=== PATIENT | female | born 1955 | race African-American/Black ===

== ENCOUNTER → 2016-11-16 | Outpatient (CLI) | payer OTHER ==
[2016-08-18 09:00] VITALS: BP 143/78
[~2016-11-16] MED LIST: ALEN70TA3 PO; ALEN70TA5 PO; ASPI-482 PO; ATOR20TA58 PO; BIOT25005 PO; BUPR300T3 PO; BUPR300T4 PO; BUSP10TA PO; CALC500T50 PO; CALC667C6 PO; CHOL10003 PO; CYCL10TA2 PO; DICY20TA3 PO; DOCU-27 PO; ERGO500012 PO; FOLI1TAB16 PO; GABA-586 PO; HYDR-971 PO; HYDR200T PO; LISI-338 PO; LISI10TA2 PO; METH-38 PO; METH2.5T PO; METH4TAB2 PO; METO25TA2 PO; MULT-245 PO; NAPR500T3 PO; NIAC500T10 PO; NITR100C62 PO; OMEP20CA9 PO; ONDA4TAB10 SL; PANT20TA2 PO; POLY500P14 MC; TRAM-29 PO; TRAZ100T12 PO; VILA1TAB2 PO; VILA40TA PO; [UNRECOGNIZED DRUG - CODE] PO; calcium; desyrel PO
--- NOTE | 2016-11-16 14:18 | KCIC ---
PROCEDURE Cervical spine radiographs HISTORY Neck pain, fall about 1 week ago, previous surgery COMPARISON September 24, 2016 FINDINGS Three views of the cervical spine are submitted. There is adequate alignment of the lateral masses C1 relative to C2. Tip of the dens as well as the occipital condylar-C1 articulation are obscured by overlying bone on the odontoid view. Cervical vertebral body stature is maintained. AP alignment is unchanged. There is again intact anterior metallic plate and screws C4, C5, C6. There are again interbody grafts at C4-5 and C5-C6, do not appear completely incorporated. No acute fracture is identified of the visualized cervical spine. Atlantoaxial distance is within normal limits. There is multilevel cervical facet degenerative change. There is likely some atherosclerotic calcification of carotid arteries in the neck bilaterally. IMPRESSION No acute fracture is identified by radiographs. There is intact anterior fusion hardware C4-C6. Electronically signed by: Lazaro Escalera MD (Nov 16, 2016 14:16:57)
== END | disposition home or self-care (01) ==
LOC: KCIC 13:03
PROVIDERS: ATTEND Neurological Surgery
DX: M47.892 Other spondylosis, cervical region (principal); W19.XXXD Unspecified fall, subsequent encounter
CPT/HCPCS: 72040

== ENCOUNTER → 2016-12-21 | Outpatient (CLI) | payer OTHER ==
[2016-08-18 09:00] VITALS: BP 143/78
--- NOTE | 2016-12-21 13:06 | KCIC ---
PROCEDURE Three view cervical spine HISTORY Neck pain extending to the left side. Fell 3 weeks ago. Fusion June 2016. COMPARISON November 16, 2016 FINDINGS Anterior fusion plate and screws at C4 through C6 with intervertebral graft again identified. There is slight obscuration of the margins between the graft and the vertebrae which could indicate some mild interval incorporation. C1 through C7 seen on the lateral view. No evidence of acute fracture or dislocation. Joint space is intact. Degenerative spondylosis at C6-C7 is stable. Prevertebral soft tissues appear within normal limits. IMPRESSION No acute findings. There may be some interval incorporation of intervertebral graft at the fused levels. Electronically signed by: Mauricio Rodríguez MD (Dec 21, 2016 13:04:59)
== END | disposition home or self-care (01) ==
LOC: KCIC 08:52
PROVIDERS: ATTEND Neurological Surgery
DX: M47.892 Other spondylosis, cervical region (principal); W19.XXXD Unspecified fall, subsequent encounter; Z98.1 Arthrodesis status
CPT/HCPCS: 72040

== ENCOUNTER 2017-01-15 09:06 | Inpatient (IN) | payer MEDICARE, OTHER ==
[~2017-01-15] VITALS: Ht 161.3 cm; Wt 76.2 kg
[2017-01-15] VITALS (9 sets, daily range): BP systolic 120–140; BP diastolic 56–74
[~2017-01-15 09:06] MED LIST changes: +ARIP10TA13 PO; +BUPR150T11 PO; +CEFAZOLIN 1GM IVPB FOR OMNI 50 ML IV ONE; +DICL75TA PO; +FENTANYL PF 100 MCG/2 ML VIAL. IV PRN; +GABA-585 PO; +HYDR200T5 PO; +HYDROMORPHONE 2 MG/ML VIAL. IV PRN; +IV RINGERS,LACTATED 1000ML 1,000 ML IV SCH; +LIDOCAINE 1% 1 ML SYRINGE. ID PRN; +MORPHINE SULFATE 2 MG/ML DISP.SYRIN. IV PRN; +NITR0.4T6 SL; +ONDANSETRON PF 4 MG/2 ML VIAL. IV PRN; +POLY119P19 PO; +PROCHLORPERAZINE 10 MG/2 ML VIAL. IV PRN; +TIZA4CAP3 PO; +TRAM50TA PO
[2017-01-15 10:23] LABS: BASO % 1 % (0-3); EOS % 10 % (0-3); HEMATOCRIT 36.7 % (36.0-47.0); HEMOGLOBIN 11.9 g/dL (12.0-15.5); LYMPH % 53 % (24-48); MEAN CORPUSCULAR HEMOGLOBIN 28 pg (25-35); MEAN CORPUSCULAR HGB CONC 32 g/dL (31-37); MEAN CORPUSCULAR VOLUME 86 fL (79-100); MONO % 11 % (0-9); NEUT % 26 % (31-73); PLATELET COUNT 183 x10^3/uL (140-400); RED BLOOD COUNT 4.25 x10^6/uL (3.50-5.40); RED CELL DISTRIBUTION WIDTH 15.4 % (11.5-14.5); WHITE BLOOD COUNT 3.7 x10^3/uL (4.0-11.0)
--- NOTE | 2017-01-15 10:26 | PDOC ---
SURGICAL PROGRESS NOTE Subjective 61 yo F with severe achalasia d/w Dr. Garza Reviewed relevant literature TO OR for lap vs open heller myotomy R/B/A d/w pt and pt's Vital Signs Vital Signs Date Time Temp Pulse Resp B/P Pulse Ox O2 Delivery O2 Flow Rate FiO2 01/15/17 09:49 99.5 56 20 96 99.5 JENNIFER ULRICH MD Jan 15, 2017 10:26
[2017-01-15] MEDS ORDERED: ROCURONIUM 50 MG/5 ML VIAL. ONE ×2 (10:33→12:00)
[2017-01-15] MEDS ORDERED: NEOSTIGMINE METHYLSULFATE 5 MG/5 ML SYRINGE. ONE (10:33)
[2017-01-15] MEDS ORDERED: GLYCOPYRROLATE 1 MG/5 ML VIAL. ONE (10:33)
[2017-01-15] MEDS ORDERED: SEVOFLURANE 61 TO 120 MINUTES. IH ONE (10:33)
[2017-01-15] MEDS ORDERED: MIDAZOLAM HCL 2 MG/2 ML VIAL. ONE (10:33)
[2017-01-15] MEDS ORDERED: FENTANYL PF 100 MCG/2 ML VIAL. ONE ×3 (10:33→13:15)
[2017-01-15] MEDS ORDERED: ONDANSETRON PF 4 MG/2 ML VIAL. ONE (10:34)
[2017-01-15] MEDS ORDERED: PROPOFOL 20 ML IV ONE (10:34)
[2017-01-15] MEDS ORDERED: LIDOCAINE 2% 100 MG/5 ML DISP.SYRIN. ONE (10:34)
[2017-01-15] MEDS ORDERED: DEXAMETHASONE SOD PHOS 20 MG/5 ML VIAL. ONE (10:34)
[2017-01-15] MEDS ORDERED: KETOROLAC 30 MG/ML SYRINGE FOR OR. INJ ONE (10:34)
[2017-01-15 10:42] LABS: CALCIUM 8.7 mg/dL (8.5-10.1); CREATININE 0.9 mg/dL (0.6-1.0)
[2017-01-15 10:47] LABS: ALBUMIN 3.5 g/dL (3.4-5.0); ALBUMIN/GLOBULIN RATIO 0.9 (1.0-1.7); TOTAL BILIRUBIN 0.7 mg/dL (0.2-1.0); TOTAL PROTEIN 7.2 g/dL (6.4-8.2)
[2017-01-15] MEDS ORDERED: SURGICEL HEMOSTAT 4X8 EACH. ONE (10:56)
[2017-01-15] MEDS ORDERED: BUPIVAC MPF-EPI 0.5%-1:200000 30 ML VIAL. ONE (10:56)
[2017-01-15] MEDS ORDERED: EPHEDRINE PF IN SALINE 50 MG/5 ML DISP.SYRIN. IV ONE (11:38)
[2017-01-15] MEDS ORDERED: PHENYLEPHRINE in 0.9% NACL PF 1 MG/10 ML DISP.SYRIN. IV ONE (11:38)
[2017-01-15] MEDS: IV RINGERS,LACTATED 1000ML 1,000 ML IV SCH ×2 (13:24→23:24)
[2017-01-15] MEDS ORDERED: 0.9 % SODIUM CHLORIDE 10 ML DISP.SYRIN. IV PRN (13:30)
[2017-01-15] MEDS ORDERED: NALOXONE 0.4 MG/ML VIAL. IV PRN (13:30)
[2017-01-15] MEDS ORDERED: ONDANSETRON PF 4 MG/2 ML VIAL. IV PRN (13:30)
--- NOTE | 2017-01-15 13:41 | PDOC ---
BRIEF OPERATIVE NOTE Pre-Op Diagnosis Severe achalasia Post-Op Diagnosis same Procedure Performed Lap converted to open heller myotomy Surgeon Meagan Anesthesia Type: General Blood Loss 50 IV Fluid 1500 Findings chronic scarring of the GE jxn Complications none Additional Remarks [id number] JENNIFER ULRICH MD Jan 15, 2017 13:41
[2017-01-15] MEDS: HYDROMORPHONE STANDARD PCA 30 ML IV PRN (14:38)
--- NOTE | 2017-01-15 14:49 | RAD ---
Portable KUB without comparison for postop. Findings: There is scattered abdominal bowel gas in a nonobstructive pattern. Sutures are seen in the left upper quadrant, and there is a left upper quadrant abdominal drain in close approximation. An enteric tube is present as well. 5 mm calcification projecting over the right kidney may represent nephrolithiasis. There are degenerative changes of the lower lumbar spine. Impression: 1. Nonobstructive nonspecific bowel gas pattern. 2. Probable nephrolithiasis on the right. 3. Postsurgical changes involving the left upper quadrant of the abdomen.
[2017-01-15] MEDS: FENTANYL PF 100 MCG/2 ML VIAL. IV PRN ×2 (14:50→14:57)
--- NOTE | 2017-01-15 17:13 | OP ---
DATE OF SURGERY: 01/15/2017 REFERRING PHYSICIANS: Dr. Mauricio Daugherty, Dr. Fina Lenz, Dr. Bryanna Hinojosa, and Dr. Ariel Garza. Thank you for the consult. PREOPERATIVE DIAGNOSIS: Severe achalasia. POSTOPERATIVE DIAGNOSIS: Severe achalasia. PROCEDURE: Laparoscopic converted to open Heller myotomy. SURGEON: Brendon Rhodes MD ESTIMATED BLOOD LOSS: 50 mL. FLUIDS: 1500 mL. COMPLICATIONS: None. FINDINGS: Severe scarring of the GE junction, chronic in nature, patent gastrojejunal anastomosis. INDICATIONS: This is a 61-year-old female who presents with complaints of increasing problems with swallowing food, and it is now progressed to the point of having difficulty swallowing liquids. She has had extensive GI workup by Dr. Lenz and Dr. Hinojosa, which is concerning for severe achalasia and some concern for developing esophageal dysmotility. Subsequently, it was felt that the patient will best be served by laparoscopic versus open Heller myotomy. The literature was reviewed regarding this prior to surgery, specifically achalasia in a post-gastric bypass patient and is found to be a fairly uncommon disease process, which is unknown in its correlation with gastric bypass. Regardless, Heller myotomy is recommended treatment. Fundoplication is unnecessary secondary to the treatment of reflux with the use of gastric bypass previously and also the lack of the ability to create a fundoplication of the remnant stomach. Subsequently, the patient and the patient's were extensively informed of the risks, benefits, and the alternatives of procedure, risks including but not limited to bleeding, infection, damage to surrounding structures, risk of anesthesia, risk of an open procedure, and risk of esophageal leak. The patient and the patient's appeared to understand, and their insightful questions were answered, and they agreed to proceed. DESCRIPTION OF PROCEDURE: After obtaining informed consent, the patient was taken to the operating room. Induced under general endotracheal anesthetic, the patient was prepped and draped in usual fashion in the anterior abdominal wall. Marcaine 0.5% with epinephrine was injected in the supraumbilical area, and incision was made using 15-blade scalpel. A 5-mm nonbladed trocar was introduced in the abdominal cavity under direct vision of laparoscope. Pneumoperitoneum was thus established. Additional 5-mm port was placed in left upper quadrant, one in the right upper quadrant and an additional one in the right upper quadrant. The abdominal cavity was explored. There were some benign adhesions in lower abdomen consistent with a hysterectomy. It was benign in nature. Visualized portion of viscera was normal in appearance. There was no evidence of trocar injury. Liver was normal in appearance. Gallbladder was normal in appearance. There was a significant sparing of adhesions in the upper abdomen. There was some mild scarring of the left edge of the liver to the area of the previous gastrojejunostomy. Loop of the jejunum was noted to come up in proper apposition to the gastric pouch, and the anastomosis was normal in appearance. The gastroesophageal area was identified and was noted to be fairly robust in nature. Initial laparoscopic dissection in this area demonstrated significant adherence of the circular and longitudinal muscles at the area that were not really separable using electrocautery dissection. As such, it was felt the patient will best be served by an open procedure. An upper midline incision was made using electrocautery. Subcutaneous tissue was divided using electrocautery. Fascia was divided in the midline. This allowed palpable dissection of the area. A careful myotomy was then performed well onto the stomach, but not to the area of the gastrojejunostomy and well up on to the esophagus several centimeters going on up to the hiatus. These muscle structures were extremely adherent to this area and were difficult to separate off. Certainly, the clear plane between the submucosa and the muscularis was difficult to identify secondary to previous interventions in the area. This did require a gastrotomy below the GE junction for dissection of the muscle fibers. This was repaired in a transverse fashion using multiple interrupted 3-0 Vicryls. Ultimately, the muscle fibers of the anterior aspect of the GE junction were extensively disrupted for several centimeters onto the stomach and then also several centimeters proximal into the esophagus. Palpation in this area did not demonstrate any more robust areas of concern, and the submucosa was intact except for more previously noted. Previous gastrojejunostomy was also palpated and visualized and found to be completely patent. The area was irrigated. There was no evidence of bleeding. Air was blown via the NG tube across the area of concern. There was no evidence of leakage or air bubbles. Portion of omentum was placed in the area, although not tacked in places given the concern for possible stricture or other abnormality. A 19-ROSY drain was brought into the left upper quadrant and placed in the area. The NG tube was palpably noted to be in proper position in the very proximal alimentary limb of the jejunum. The fascia was reapproximated in midline using 2 looped 0 PDS stitches in continuous fashion. Subcutaneous tissues were approximated with 3-0 Vicryl. Skin incisions were approximated with 4-0 Monocryl in subcuticular fashion. Sterile dressing was placed over the wound. The 19-ROSY drain was secured in place using a 3-0 nylon stitch. The patient tolerated the procedure well and was discharged to Recovery Room in stable condition. All counts were correct. There were no immediate complications. BRENDON RHODES MD DR: ANNMARIE/yevgeniy JOB#: [id number] / [id number] BRYANNA Oglesby MD, STANLEY MD PARRA, FINA CACERES MD, MD
[2017-01-15] MEDS: IV NORMAL SALINE 1000ML BAG 1,000 ML IV SCH (20:08)
[2017-01-15] MEDS: LORAZEPAM 2 MG/ML VIAL IV PRN (22:08)
[2017-01-16 03:00] VITALS: BP 126/63
[2017-01-16] MEDS: LORAZEPAM 2 MG/ML VIAL IV PRN ×4 (04:05→22:40)
[2017-01-16 06:18] LABS: CALCIUM 8.6 mg/dL (8.5-10.1); CREATININE 0.9 mg/dL (0.6-1.0); POTASSIUM 4.4 mmol/L (3.5-5.1)
[2017-01-16 06:24] LABS: BASO % 0 % (0-3); EOS % 0 % (0-3); HEMATOCRIT 38.8 % (36.0-47.0); HEMOGLOBIN 12.1 g/dL (12.0-15.5); LYMPH # 1.1 x10^3/uL (1.0-4.8); LYMPH % 7 % (24-48); MEAN CORPUSCULAR HEMOGLOBIN 28 pg (25-35); MEAN CORPUSCULAR HGB CONC 31 g/dL (31-37); MEAN CORPUSCULAR VOLUME 88 fL (79-100); MONO % 6 % (0-9); NEUT % 87 % (31-73); PLATELET COUNT 172 x10^3/uL (140-400); RED BLOOD COUNT 4.41 x10^6/uL (3.50-5.40); RED CELL DISTRIBUTION WIDTH 15.8 % (11.5-14.5); WHITE BLOOD COUNT 15.8 x10^3/uL (4.0-11.0)
[2017-01-16 07:00] VITALS: BP 135/69
[2017-01-16 08:16] LABS: PLT ESTIMATE ADEQUATE (ADEQUATE)
[2017-01-16] MEDS: IV RINGERS,LACTATED 1000ML 1,000 ML IV SCH ×2 (09:24→19:24)
[2017-01-16] MEDS: ENOXAPARIN 40 MG/0.4 ML DISP.SYRIN. SQ SCH (10:19)
[2017-01-16] MEDS ORDERED: LORAZEPAM 2 MG/ML VIAL IV PRN (10:45)
[2017-01-16 11:00] VITALS: BP 137/75
--- NOTE | 2017-01-16 11:55 | RAD ---
Portable abdomen, 01/16/2017: History: Check NG tube placement The upright view of the upper abdomen demonstrates a tube overlying the upper abdomen which probably represents a surgical drain. An NG tube extends into the left lower abdomen near the level of the iliac crest. There is a given history of previous gastric bypass surgery. The tube presumably extends into small bowel. Gas is present in large and small bowel as well as the stomach in a nonspecific pattern. No free air is seen in the abdomen. There is mild streaky atelectasis/infiltrate in the left lung base. IMPRESSION: 1. The NG tube extends into the left mid to lower abdomen, most likely extending into small bowel in this patient with a history of previous gastric bypass surgery. 2. Mild left basilar atelectasis/infiltrate.
--- NOTE | 2017-01-16 12:50 | PDOC ---
SURGICAL PROGRESS NOTE Subjective Pt with c/o incisional pain and NGT, but otherwise OK, pain control Vital Signs Vital Signs Date Time Temp Pulse Resp B/P Pulse Ox O2 Delivery O2 Flow Rate FiO2 01/16/17 11:00 98.7 78 18 137/75 95 Room Air 98.7 01/16/17 08:00 1.0 I&O Intake and Output 01/16/17 07:00 Intake Total 3090 ml Output Total 1900 ml Balance 1190 ml Intake Oral 340 ml IV Total 2750 ml Output Urine Total 1750 ml Drainage Total 100 ml Estimated Blood Loss 50 ml General: Alert, Oriented X3, Cooperative, No acute distress Abdomen: Soft, Other (mild TTp, dressing c/d/i, ROSY serosang) Labs Laboratory Tests Test 01/15/17 09:42 01/16/17 05:08 White Blood Count 3.7x10^3/uL (4.0-11.0) 15.8x10^3/uL (4.0-11.0) Red Blood Count 4.25x10^6/uL (3.50-5.40) 4.41x10^6/uL (3.50-5.40) Hemoglobin 11.9g/dL (12.0-15.5) 12.1g/dL (12.0-15.5) Hematocrit 36.7% (36.0-47.0) 38.8% (36.0-47.0) Mean Corpuscular Volume 86fL (79-100) 88fL (79-100) Mean Corpuscular Hemoglobin 28pg (25-35) 28pg (25-35) Mean Corpuscular Hemoglobin Concent 32g/dL (31-37) 31g/dL (31-37) Red Cell Distribution Width 15.4% (11.5-14.5) 15.8% (11.5-14.5) Platelet Count 183x10^3/uL (140-400) 172x10^3/uL (140-400) Neutrophils (%) (Auto) 26% (31-73) 87% (31-73) Lymphocytes (%) (Auto) 53% (24-48) 7% (24-48) Monocytes (%) (Auto) 11% (0-9) 6% (0-9) Eosinophils (%) (Auto) 10% (0-3) 0% (0-3) Basophils (%) (Auto) 1% (0-3) 0% (0-3) Neutrophils # (Auto) 1.0x10^3uL (1.8-7.7) 13.7x10^3uL (1.8-7.7) Lymphocytes # (Auto) 2.0x10^3/uL (1.0-4.8) 1.1x10^3/uL (1.0-4.8) Monocytes # (Auto) 0.4x10^3/uL (0.0-1.1) 0.9x10^3/uL (0.0-1.1) Eosinophils # (Auto) 0.4x10^3/uL (0.0-0.7) 0.0x10^3/uL (0.0-0.7) Basophils # (Auto) 0.0x10^3/uL (0.0-0.2) 0.0x10^3/uL (0.0-0.2) Sodium Level 145mmol/L (136-145) 143mmol/L (136-145) Potassium Level 4.0mmol/L (3.5-5.1) 4.4mmol/L (3.5-5.1) Chloride Level 108mmol/L (98-107) 106mmol/L (98-107) Carbon Dioxide Level 30mmol/L (21-32) 30mmol/L (21-32) Anion Gap 7 (6-14) 7 (6-14) Blood Urea Nitrogen 12mg/dL (7-20) 14mg/dL (7-20) Creatinine 0.9mg/dL (0.6-1.0) 0.9mg/dL (0.6-1.0) Estimated GFR (Cockcroft-Gault) 77.0 77.0 BUN/Creatinine Ratio 13 (6-20) Glucose Level 79mg/dL (70-99) 102mg/dL (70-99) Calcium Level 8.7mg/dL (8.5-10.1) 8.6mg/dL (8.5-10.1) Total Bilirubin 0.7mg/dL (0.2-1.0) Aspartate Amino Transf (AST/SGOT) 31U/L (15-37) Alanine Aminotransferase (ALT/SGPT) 31U/L (14-59) Alkaline Phosphatase 95U/L (46-116) Total Protein 7.2g/dL (6.4-8.2) Albumin 3.5g/dL (3.4-5.0) Albumin/Globulin Ratio 0.9 (1.0-1.7) Segmented Neutrophils % 91% (35-66) Band Neutrophils % 2% (0-9) Lymphocytes % 3% (24-48) Atypical Lymphocytes % (Manual) 2% (0-0) Monocytes % 2% (0-10) Platelet Estimate Adequate (ADEQUATE) Laboratory Tests Test 01/16/17 05:08 White Blood Count 15.8x10^3/uL (4.0-11.0) Red Blood Count 4.41x10^6/uL (3.50-5.40) Hemoglobin 12.1g/dL (12.0-15.5) Hematocrit 38.8% (36.0-47.0) Mean Corpuscular Volume 88fL (79-100) Mean Corpuscular Hemoglobin 28pg (25-35) Mean Corpuscular Hemoglobin Concent 31g/dL (31-37) Red Cell Distribution Width 15.8% (11.5-14.5) Platelet Count 172x10^3/uL (140-400) Neutrophils (%) (Auto) 87% (31-73) Lymphocytes (%) (Auto) 7% (24-48) Monocytes (%) (Auto) 6% (0-9) Eosinophils (%) (Auto) 0% (0-3) Basophils (%) (Auto) 0% (0-3) Neutrophils # (Auto) 13.7x10^3uL (1.8-7.7) Lymphocytes # (Auto) 1.1x10^3/uL (1.0-4.8) Monocytes # (Auto) 0.9x10^3/uL (0.0-1.1) Eosinophils # (Auto) 0.0x10^3/uL (0.0-0.7) Basophils # (Auto) 0.0x10^3/uL (0.0-0.2) Segmented Neutrophils % 91% (35-66) Band Neutrophils % 2% (0-9) Lymphocytes % 3% (24-48) Atypical Lymphocytes % (Manual) 2% (0-0) Monocytes % 2% (0-10) Platelet Estimate Adequate (ADEQUATE) Sodium Level 143mmol/L (136-145) Potassium Level 4.4mmol/L (3.5-5.1) Chloride Level 106mmol/L (98-107) Carbon Dioxide Level 30mmol/L (21-32) Anion Gap 7 (6-14) Blood Urea Nitrogen 14mg/dL (7-20) Creatinine 0.9mg/dL (0.6-1.0) Estimated GFR (Cockcroft-Gault) 77.0 Glucose Level 102mg/dL (70-99) Calcium Level 8.6mg/dL (8.5-10.1) Problem List Problems Medical Problems: (1) Achalasia Status: Acute Assessment/Plan s/p heller cont NGT cont drain pain control d/w pt's daughter Problems: JENNIFER ULRICH MD Jan 16, 2017 12:50
[2017-01-16 15:00] VITALS: BP 135/71
[2017-01-16 19:00] VITALS: BP 152/81
[2017-01-16] MEDS: IV NORMAL SALINE 1000ML BAG 1,000 ML IV SCH (19:34)
[2017-01-16 23:00] VITALS: BP 161/85
[2017-01-17 03:00] VITALS: BP 150/81
[2017-01-17] MEDS ORDERED: DIPHENHYDRAMINE 50 MG/ML VIAL IVP PRN (03:15)
[2017-01-17] MEDS: IV RINGERS,LACTATED 1000ML 1,000 ML IV SCH ×2 (05:24→17:59)
[2017-01-17 07:00] VITALS: BP 153/88
[2017-01-17] MEDS: LORAZEPAM 2 MG/ML VIAL IV PRN (07:17)
[2017-01-17] MEDS: ENOXAPARIN 40 MG/0.4 ML DISP.SYRIN. SQ SCH (09:40)
[2017-01-17 11:00] VITALS: BP 146/89
--- NOTE | 2017-01-17 11:24 | PDOC ---
SURGICAL PROGRESS NOTE Subjective ng out, no emesis has not been out of bed no flatus incisional pain, worse with cough Vital Signs Vital Signs Date Time Temp Pulse Resp B/P Pulse Ox O2 Delivery O2 Flow Rate FiO2 01/17/17 11:00 98.4 95 20 146/89 100 Room Air 98.4 01/16/17 20:00 1.0 I&O Intake and Output 01/17/17 07:00 Intake Total 0 ml Output Total 800 ml Balance -800 ml Intake Oral 0 ml Output Urine Total 800 ml General: Alert, Oriented X3, Cooperative, No acute distress Abdomen: Soft, Other (dressing dry, incisional TTP) Labs Laboratory Tests Test 01/16/17 05:08 White Blood Count 15.8x10^3/uL (4.0-11.0) Red Blood Count 4.41x10^6/uL (3.50-5.40) Hemoglobin 12.1g/dL (12.0-15.5) Hematocrit 38.8% (36.0-47.0) Mean Corpuscular Volume 88fL (79-100) Mean Corpuscular Hemoglobin 28pg (25-35) Mean Corpuscular Hemoglobin Concent 31g/dL (31-37) Red Cell Distribution Width 15.8% (11.5-14.5) Platelet Count 172x10^3/uL (140-400) Neutrophils (%) (Auto) 87% (31-73) Lymphocytes (%) (Auto) 7% (24-48) Monocytes (%) (Auto) 6% (0-9) Eosinophils (%) (Auto) 0% (0-3) Basophils (%) (Auto) 0% (0-3) Neutrophils # (Auto) 13.7x10^3uL (1.8-7.7) Lymphocytes # (Auto) 1.1x10^3/uL (1.0-4.8) Monocytes # (Auto) 0.9x10^3/uL (0.0-1.1) Eosinophils # (Auto) 0.0x10^3/uL (0.0-0.7) Basophils # (Auto) 0.0x10^3/uL (0.0-0.2) Segmented Neutrophils % 91% (35-66) Band Neutrophils % 2% (0-9) Lymphocytes % 3% (24-48) Atypical Lymphocytes % (Manual) 2% (0-0) Monocytes % 2% (0-10) Platelet Estimate Adequate (ADEQUATE) Sodium Level 143mmol/L (136-145) Potassium Level 4.4mmol/L (3.5-5.1) Chloride Level 106mmol/L (98-107) Carbon Dioxide Level 30mmol/L (21-32) Anion Gap 7 (6-14) Blood Urea Nitrogen 14mg/dL (7-20) Creatinine 0.9mg/dL (0.6-1.0) Estimated GFR (Cockcroft-Gault) 77.0 Glucose Level 102mg/dL (70-99) Calcium Level 8.6mg/dL (8.5-10.1) Problem List Problems Medical Problems: (1) Achalasia Status: Acute Assessment/Plan s/p bonilla npo, hydration, wad impregnator ambulate, PT/OT baylee kline Problems: JASMINA ENRIQUE APRN Jan 17, 2017 11:24
--- NOTE | 2017-01-17 12:59 | CONS ---
DATE OF CONSULTATION: 01/17/2017 REASON FOR CONSULTATION: Medical management of anxiety and hypertension. HISTORY OF PRESENT ILLNESS AND HOSPITAL COURSE: This patient is a 61-year-old -[place] female with history of SLE, hypertension, high cholesterol, fibromyalgia, and generalized anxiety. She was admitted electively by Dr. Brendon Rhodes for Heller myotomy due to severe ectasia diagnosed by GI Medicine, refractory to dilatation by GI Medicine. The patient underwent laparoscopic procedure, which was switched to open procedure to alleviate scarring of GE junction. This was accomplished successfully. The patient is approximately postop day #2 with uncomplicated postoperative course except for extreme anxiety. The patient is currently n.p.o., and blood pressures are stable at this time, and p.o. status is presumed to begin once bowel function returns in the next 24 to 48 hours. If needed, IV blood pressure medicine will be instituted. Ativan was also ordered to help with generalized anxiety. The patient states she is feeling well with adequate pain control and states that she is hungry but continues not to pass the gas at this time and continues to have Figueroa and Chris-Aguilar drain in place. PAST MEDICAL HISTORY: Significant for: 1. Systemic lupus erythematosus. 2. Hypertension. 3. High cholesterol. 4. Reflux disease with stricture. 5. Anxiety. 6. History of gallstones. 7. Ongoing fibromyalgia. 8. Ongoing irritable bowel syndrome. 9. History of pulmonary embolus. 10. Obstructive sleep apnea. 11. Osteoarthritis. 12. Depression. 13. PTSD. PAST SURGICAL HISTORY: The patient had surgery of total abdominal hysterectomy and bilateral oophorectomy, gastric bypass in 2010; lysis of adhesions, open and laparoscopically, breast reduction, carpal tunnel release, and at least one esophageal dilatation endoscopically. FAMILY HISTORY: Significant for a daughter with SLE, a sister who with ovarian cancer, her father who is of unknown etiology, and mother who is of colon cancer. SOCIAL HISTORY: The patient has never smoked. She has used alcohol occasionally. She lives with spouse and children. She is on disability for PTSD. ALLERGIES: The patient has no known drug allergies. REVIEW OF SYSTEMS: At this time, the patient has had weight loss, likely due to esophageal stricture but denies any fever, cough, congestion, diarrhea, nausea, or vomiting. PHYSICAL EXAMINATION: GENERAL: This is a well-nourished, well-developed -[place] female in no apparent distress. On my exam, she is alert and oriented x 3. HEENT: Benign except for dry mucous membranes. NECK: Supple without JVD or bruit. CARDIAC: Regular rate and rhythm. LUNGS: Clear. ABDOMEN: Soft with dressings from recent abdominal surgery. She did not have bowel sounds at this point, but she is not distended. EXTREMITIES: Showed 2+ pulses without significant edema. NEUROLOGIC: Showed no unilateral findings. ASSESSMENT: 1. Postoperative day 2 of esophageal surgery. 2. Generalized anxiety, under control with IV Ativan p.r.n. 3. Hypertension, awaiting ability to take p.o. medications at this time. 4. Lupus, stable. PLAN: To monitor blood pressures and GI status and follow along with you. Thank you very much for this consultation. DYAN SHANKS MD DR: KIKI/yevgeniy JOB#: [id number] / [id number]
[2017-01-17] MEDS: IV NORMAL SALINE 1000ML BAG 1,000 ML IV SCH (13:24)
[2017-01-17] MEDS: HYDROMORPHONE STANDARD PCA 30 ML IV PRN (14:57)
[2017-01-17 15:00] VITALS: BP 153/89
[2017-01-17 19:20] VITALS: BP 151/93
[2017-01-17 23:52] VITALS: BP 145/83
[2017-01-18] MEDS: IV RINGERS,LACTATED 1000ML 1,000 ML IV SCH ×3 (01:24→21:43)
[2017-01-18 03:51] VITALS: BP 141/91
[2017-01-18 07:00] VITALS: BP 150/93
[2017-01-18] MEDS: LORAZEPAM 2 MG/ML VIAL IV PRN ×3 (07:58→21:43)
[2017-01-18] MEDS: ENOXAPARIN 40 MG/0.4 ML DISP.SYRIN. SQ SCH (08:02)
--- NOTE | 2017-01-18 09:13 | PDOC ---
PROGRESS NOTES Subjective Subjective Patient feels better. Still denied flatus. intermittent anxiety attacks noted by nursing and patient. NG out and Carolina d/c'd Objective Objective Vital Signs Date Time Temp Pulse Resp B/P Pulse Ox O2 Delivery O2 Flow Rate FiO2 01/18/17 07:00 98.5 98 20 150/93 95 Room Air 98.5 01/16/17 20:00 1.0 Intake and Output 01/18/17 07:00 Intake Total 360 ml Output Total 1200 ml Balance -840 ml Intake Oral 360 ml Output Urine Total 1200 ml # Voids 1 Physical Exam Abdomen: Other (bowel sounds noted no distention) Heart: Regular rate General: Alert Lungs: Clear to auscultation Assessment Assessment Problems Medical Problems: (1) Achalasia Status: Acute 1. Postoperative day 3 of esophageal surgery. 2. Generalized anxiety, under control with IV Ativan p.r.n. 3. Hypertension, awaiting ability to take p.o. medications at this time. 4. Lupus, stable. Plan Plan of Care Advance diet when ok with surgery Add prn iv labetalol for BP and pulse continue post op care start po meds when taking po Comment Review of Relevant I have reviewed the following items akira (where applicable) has been applied. Medications Current Medications Ondansetron HCl (Zofran) 4 mg PRN Q6HRS PRN IV Nausea; Start 01/15/17 at 07:00 ; Stop 01/16/17 at 06:59; Status DC Fentanyl Citrate (Fentanyl 2ml Vial) 25 mcg PRN Q5MIN PRN IV MILD PAIN; Start 01/15/17 at 07:00; Stop 01/16/17 at 06:59; Status DC Fentanyl Citrate (Fentanyl 2ml Vial) 50 mcg PRN Q5MIN PRN IV MODERATE PAIN Last administered on 01/15/17 14:57; Start 01/15/17 at 07:00; Stop 01/16/17 at 06:59; Status DC Morphine Sulfate 1 mg 1 mg PRN Q10MIN PRN IV SEVERE PAIN; Start 01/15/17 at 07: 00; Stop 01/16/17 at 06:59; Status DC Lactated Ringer's (Iv Lactated Ringers) 1,000 ml @ 0 mls/hr Q0M IV Last administered on 01/15/17t 10:13; Start 01/15/17 at 07:00; Stop 01/15/17 at 18:59 ; Status DC Lidocaine HCl 2 ml 1X PRN PRN ID IV START; Start 01/15/17 at 07:00; Stop at 06:59; Status DC Hydromorphone HCl (Dilaudid) 0.5 mg PRN Q10MIN PRN IV SEVERE PAIN, Second choice; Start 01/15/17 at 07:00; Stop 01/16/17 at 06:59; Status DC Prochlorperazine Edisylate 5 mg 5 mg PACU PRN PRN IV NAUSEA; Start 01/15/17 at 07:00; Stop 01/16/17 at 06:59; Status DC Cefazolin Sodium (Ancef 1gm Ivpb For Omni) 50 ml @ 100 mls/hr 1X ONCE IV Last administered on 01/15/17t 11:28; Start 01/15/17 at 08:00; Stop 01/15/17 at 08:29; Status DC Sevoflurane (Ultane) 60 ml STK-MED ONCE IH ; Start 01/15/17 at 10:33; Stop 01/15 at 10:34; Status DC Midazolam HCl (Versed) 2 mg STK-MED ONCE .ROUTE ; Start 01/15/17 at 10:33; Stop 01/15/17 at 10:34; Status DC Fentanyl Citrate (Fentanyl 2ml Vial) 100 mcg STK-MED ONCE .ROUTE ; Start at 10:33; Stop 01/15/17 at 10:34; Status DC Glycopyrrolate (Robinul) 1 mg STK-MED ONCE .ROUTE ; Start 01/15/17 at 10:33; Stop 01/15/17 at 10:34; Status DC Neostigmine Methylsulfate 5 mg STK-MED ONCE .ROUTE ; Start 01/15/17 at 10:33; Stop 01/15/17 at 10:34; Status DC Rocuronium [place] 50 mg 50 mg STK-MED ONCE .ROUTE ; Start 01/15/17 at 10:33; Stop 01/15/17 at 10:34; Status DC Propofol (Diprivan) 20 ml @ As Directed STK-MED ONCE IV ; Start 01/15/17 at 10: 34; Stop 01/15/17 at 10:35; Status DC Ketorolac Tromethamine (Toradol For Or Only) 30 mg STK-MED ONCE INJ ; Start at 10:34; Stop 01/15/17 at 10:35; Status DC Dexamethasone Sodium Phosphate (Decadron) 20 mg STK-MED ONCE .ROUTE ; Start at 10:34; Stop 01/15/17 at 10:35; Status DC Ondansetron HCl (Zofran) 4 mg STK-MED ONCE .ROUTE ; Start 01/15/17 at 10:34; Stop 01/15/17 at 10:35; Status DC Lidocaine HCl 100 mg STK-MED ONCE .ROUTE ; Start 01/15/17 at 10:34; Stop at 10:35; Status DC Cellulose 1 each STK-MED ONCE .ROUTE ; Start 01/15/17 at 10:56; Stop 01/15/17 at 10:57; Status DC Bupivacaine HCl/ Epinephrine Bitart (Sensorcain-Mpf Epi 0.5%-1:160320) 30 ml STK -MED ONCE .ROUTE ; Start 01/15/17 at 10:56; Stop 01/15/17 at 10:57; Status DC Phenylephrine HCl 1 mg STK-MED ONCE IV ; Start 01/15/17 at 11:38; Stop 01/15/17 at 11:39; Status DC Ephedrine Sulfate 50 mg STK-MED ONCE IV ; Start 01/15/17 at 11:38; Stop at 11:39; Status DC Rocuronium [place] (Zemuron) 50 mg STK-MED ONCE .ROUTE ; Start 01/15/17 at 12:00 ; Stop 01/15/17 at 12:01; Status DC Fentanyl Citrate (Fentanyl 2ml Vial) 100 mcg STK-MED ONCE .ROUTE ; Start at 12:17; Stop 01/15/17 at 12:18; Status DC Fentanyl Citrate (Fentanyl 2ml Vial) 100 mcg STK-MED ONCE .ROUTE ; Start at 13:15; Stop 01/15/17 at 13:16; Status DC Enoxaparin Sodium (Lovenox 40mg Syringe) 40 mg Q24H SQ Last administered on t 08:02; Start 01/16/17 at 08:00 Sodium Chloride 3 ml 3 ml QSHIFT PRN IV AFTER MEDS AND BLOOD DRAWS; Start 01/15 at 13:30 Lactated Ringer's (Iv Lactated Ringers) 1,000 ml @ 100 mls/hr Q10H IV ; Start 01/15/17 at 13:24 Naloxone HCl 0.4 mg 0.4 mg PRN Q2MIN PRN IV SEE INSTRUCTIONS; Start 01/15/17 at 13:30 Sodium Chloride 1,000 ml @ 25 mls/hr Q24H IV Last administered on 01/17/17 13 :24; Start 01/15/17 at 13:24 Hydromorphone HCl (Dilaudid Standard PASTRYCOOK) 30 ml @ 0 mls/hr CONT PRN PRN IV PROTOCOL Last administered on 01/17/17 14:57; Start 01/15/17 at 13:30 Ondansetron HCl (Zofran) 4 mg PRN Q6HRS PRN IV NAUESA, 1ST CHOICE; Start at 13:30 Lorazepam (Ativan) 0.5 mg PRN Q6HRS PRN IV ANXIETY / AGITATION Last administered on 01/18/17 07:58; Start 01/15/17 at 21:30 Lorazepam (Ativan) 0.5 mg PRN Q6HRS PRN IV ANXIETY / AGITATION; Start 01/16/17 at 10:45; Stop 01/18/17 at 10:45 Diphenhydramine HCl (Benadryl) 25 mg PRN Q6HRS PRN IVP ITCHING Last administered on 01/17/17 22:50; Start 01/17/17 at 03:15 Active Scripts Active Reported Buspirone Hcl 10 Mg Tablet 1 Tab PO BID Trazodone Hcl 100 Mg Tablet 1 Tab PO QHS 1-2 tablet QHS Hydroxychloroquine Sulfate 200 Mg Tablet 1 Tab PO BID Dicyclomine Hcl 20 Mg Tablet 1 Tab PO BID Zanaflex (Tizanidine Hcl) 4 Mg Capsule 1 Cap PO PRN QHS PRN Diclofenac Sodium 75 Mg Tablet.dr 1 Tab PO PRN BID PRN Glycolax (Polyethylene Glycol 3350) 119 Gm Powder 17 Gm PO DAILY PRN Bupropion Hcl Sr (Bupropion Hcl) 150 Mg Tablet.er 1 Tab PO Q12HR NITROGLYCERIN SubLingual (Nitroglycerin) 0.4 Mg Tab.subl 0.4 Mg SL PRN Q5MIN PRN Tramadol Hcl 50 Mg Tablet 1 Tab PO PRN Q4-6HRS PRN Gabapentin 100 Mg Capsule 100 Mg PO TID Abilify (Aripiprazole) 10 Mg Tablet 10 Mg PO DAILY Alendronate Sodium 70 Mg Tablet 1 Tab PO WEEKLY Toprol Xl (Metoprolol Succinate) 25 Mg Tab.er.24h 1 Tab PO BID Viibryd (Vilazodone Hydrochloride) 40 Mg Tablet 1 Tab PO DAILY Methotrexate (Methotrexate Sodium) 2.5 Mg Tablet 5 Mg PO WEEKLY Plaquenil (Hydroxychloroquine Sulfate) 200 Mg Tablet 400 Mg PO BID Lisinopril 10 Mg Tablet 1 Tab PO DAILY Folic Acid 1 Mg Tablet 1 Tab PO DAILY Niacin 500 Mg Tablet.er 500 Mg PO HS Atorvastatin Calcium 20 Mg Tablet 20 Mg PO QHS Vitals/I & O Vital Sign - Last 24 Hours 01/17/17 01/17/17 01/17/17 01/17/17 11:00 14:57 15:00 15:30 Temp 98.4 98.1 98.4 98.1 Pulse 95 79 Resp 20 16 20 16 B/P 146/89 153/89 Pulse Ox 100 96 O2 Delivery Room Air Room Air Room Air Room Air 01/17/17 01/17/17 01/17/17 01/18/17 19:20 19:34 23:52 03:51 Temp 98.9 98.5 98.6 98.9 98.5 98.6 Pulse 100 95 85 Resp 18 18 18 B/P 151/93 145/83 141/91 Pulse Ox 92 93 94 O2 Delivery Room Air Room Air Room Air Room Air 01/18/17 07:00 Temp 98.5 98.5 Pulse 98 Resp 20 B/P 150/93 Pulse Ox 95 O2 Delivery Room Air Intake and Output 01/17/17 01/17/17 01/18/17 15:00 23:00 07:00 Intake Total 360 ml Output Total 625 ml 575 ml Balance -625 ml -215 ml DYAN SHANKS MD Jan 18, 2017 09:13
[2017-01-18] MEDS ORDERED: LABETALOL 20 MG/4 ML DISP.SYRIN. IVP PRN (09:15)
--- NOTE | 2017-01-18 10:48 | PDOC ---
SURGICAL PROGRESS NOTE Subjective minimal pain no nausea or emesis Vital Signs Vital Signs Date Time Temp Pulse Resp B/P Pulse Ox O2 Delivery O2 Flow Rate FiO2 01/18/17 08:00 Room Air 01/18/17 07:00 98.5 98 20 150/93 95 98.5 I&O Intake and Output 01/18/17 07:00 Intake Total 360 ml Output Total 1200 ml Balance -840 ml Intake Oral 360 ml Output Urine Total 1200 ml # Voids 1 General: Alert, Oriented X3, Cooperative, No acute distress Abdomen: Soft, Other (dressing dry, yas serosang) Problem List Problems Medical Problems: (1) Achalasia Status: Acute Assessment/Plan s/p heller check esophagram-if stable start clears Problems: JASMINA ENRIQUE APRN Jan 18, 2017 10:48
[2017-01-18 11:00] VITALS: BP 148/91
[2017-01-18] MEDS ORDERED: BARIUM SULFATE 340 GM SUSPENSION. PO ONE (13:00)
[2017-01-18] MEDS ORDERED: BARIUM SULFATE 60% 355 ML SUSP PO ONE (13:00)
[2017-01-18] MEDS ORDERED: SIMETHICONE/SOD BICARB/CITRIC ACID PACKET. PO ONE (13:00)
[2017-01-18] MEDS: IV NORMAL SALINE 1000ML BAG 1,000 ML IV SCH (13:24)
--- NOTE | 2017-01-18 13:59 | RAD ---
Indication difficulty swallowing. Esophagram was performed. 8 spot images were obtained associated with the exam. Fluoroscopy time associated with the study was 1.9 minutes. The initiation of swallowing was normal. No esophageal strictures, erosions or mucosal abnormalities were seen. No mass was apparent. No significant hiatus hernia was seen. Gastrojejunostomy was noted. IMPRESSION: No significant finding seen involving the esophagus
[2017-01-18 15:00] VITALS: BP 156/91
[2017-01-18 19:05] VITALS: BP 161/88
[2017-01-18 23:00] VITALS: BP_SYST 153; BP_SYST 173; BP_DIAS 74; BP_DIAS 98
[2017-01-19 03:00] VITALS: BP 156/85
[2017-01-19] MEDS: LORAZEPAM 2 MG/ML VIAL IV PRN ×2 (06:28→20:50)
[2017-01-19] MEDS: IV RINGERS,LACTATED 1000ML 1,000 ML IV SCH (06:32)
[2017-01-19 07:00] VITALS: BP 160/85
--- NOTE | 2017-01-19 08:43 | PDOC ---
JASMINA ENRIQUE APRN 01/19/17 0842: SURGICAL PROGRESS NOTE Subjective tolerating clears no dysphagia, no n/v pain managed Vital Signs Vital Signs Date Time Temp Pulse Resp B/P Pulse Ox O2 Delivery O2 Flow Rate FiO2 01/19/17 07:45 Room Air 01/19/17 07:00 98.0 88 20 160/85 96 98.0 I&O Intake and Output 01/19/17 07:00 Intake Total 600 ml Balance 600 ml Intake Oral 600 ml # Voids 2 PATIENT HAS A PARRA: No General: Alert, Oriented X3, Cooperative, No acute distress Abdomen: Soft, Other (dressing dry, yas serosang ) Problem List Problems Medical Problems: (1) Achalasia Status: Acute Assessment/Plan s/p heller myomectomy advance to full liquids, oral pain meds, 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
[2017-01-19] MEDS ORDERED: HYDROMORPHONE 2 MG/ML VIAL. IVP PRN (08:45)
[2017-01-19] MEDS: ENOXAPARIN 40 MG/0.4 ML DISP.SYRIN. SQ SCH (09:21)
[2017-01-19 11:00] VITALS: BP 141/98
[2017-01-19 15:00] VITALS: BP 156/82
--- NOTE | 2017-01-19 15:07 | PDOC ---
PROGRESS NOTES Subjective Subjective Patient reports she is tolerating clear liquids without nausea. Passing some flatus. Objective Objective Vital Signs Date Time Temp Pulse Resp B/P Pulse Ox O2 Delivery O2 Flow Rate FiO2 01/19/17 11:00 98.6 94 20 141/98 96 Room Air 98.6 01/16/17 20:00 1.0 Intake and Output 01/19/17 07:00 Intake Total 600 ml Balance 600 ml Intake Oral 600 ml # Voids 2 Physical Exam Abdomen: Soft, Other (few BS present, dressing dry) Heart: Regular rate Extremities: No edema General: Alert, Oriented X3, No acute distress Lungs: Clear to auscultation Assessment Assessment Problems Medical Problems: (1) Achalasia Status: Acute Plan Plan of Care 1. Achalasia, POD #4 open myotomy - stable, tolerating clear liquids. Continue post-operative care as per Dr Rhodes. 2. chronic anxiety - patient takes multiple meds for this and has been very symptomatic without them. Resume today since she is tolerating po. 3. HTN - resume home meds, BP has been mildly elevated. IV Labetalol available prn. Comment Review of Relevant I have reviewed the following items akira (where applicable) has been applied. Medications Current Medications Ondansetron HCl (Zofran) 4 mg PRN Q6HRS PRN IV Nausea; Start 01/15/17 at 07:00 ; Stop 01/16/17 at 06:59; Status DC Fentanyl Citrate (Fentanyl 2ml Vial) 25 mcg PRN Q5MIN PRN IV MILD PAIN; Start 01/15/17 at 07:00; Stop 01/16/17 at 06:59; Status DC Fentanyl Citrate (Fentanyl 2ml Vial) 50 mcg PRN Q5MIN PRN IV MODERATE PAIN Last administered on 01/15/17t 14:57; Start 01/15/17 at 07:00; Stop 01/16/17 at 06:59; Status DC Morphine Sulfate 1 mg 1 mg PRN Q10MIN PRN IV SEVERE PAIN; Start 01/15/17 at 07: 00; Stop 01/16/17 at 06:59; Status DC Lactated Ringer's (Iv Lactated Ringers) 1,000 ml @ 0 mls/hr Q0M IV Last administered on 01/15/17t 10:13; Start 01/15/17 at 07:00; Stop 01/15/17 at 18:59 ; Status DC Lidocaine HCl 2 ml 1X PRN PRN ID IV START; Start 01/15/17 at 07:00; Stop at 06:59; Status DC Hydromorphone HCl (Dilaudid) 0.5 mg PRN Q10MIN PRN IV SEVERE PAIN, Second choice; Start 01/15/17 at 07:00; Stop 01/16/17 at 06:59; Status DC Prochlorperazine Edisylate 5 mg 5 mg PACU PRN PRN IV NAUSEA; Start 01/15/17 at 07:00; Stop 01/16/17 at 06:59; Status DC Cefazolin Sodium (Ancef 1gm Ivpb For Omni) 50 ml @ 100 mls/hr 1X ONCE IV Last administered on 01/15/17t 11:28; Start 01/15/17 at 08:00; Stop 01/15/17 at 08:29; Status DC Sevoflurane (Ultane) 60 ml STK-MED ONCE IH ; Start 01/15/17 at 10:33; Stop 01/15 at 10:34; Status DC Midazolam HCl (Versed) 2 mg STK-MED ONCE .ROUTE ; Start 01/15/17 at 10:33; Stop 01/15/17 at 10:34; Status DC Fentanyl Citrate (Fentanyl 2ml Vial) 100 mcg STK-MED ONCE .ROUTE ; Start at 10:33; Stop 01/15/17 at 10:34; Status DC Glycopyrrolate (Robinul) 1 mg STK-MED ONCE .ROUTE ; Start 01/15/17 at 10:33; Stop 01/15/17 at 10:34; Status DC Neostigmine Methylsulfate 5 mg STK-MED ONCE .ROUTE ; Start 01/15/17 at 10:33; Stop 01/15/17 at 10:34; Status DC Rocuronium [place] 50 mg 50 mg STK-MED ONCE .ROUTE ; Start 01/15/17 at 10:33; Stop 01/15/17 at 10:34; Status DC Propofol (Diprivan) 20 ml @ As Directed STK-MED ONCE IV ; Start 01/15/17 at 10: 34; Stop 01/15/17 at 10:35; Status DC Ketorolac Tromethamine (Toradol For Or Only) 30 mg STK-MED ONCE INJ ; Start at 10:34; Stop 01/15/17 at 10:35; Status DC Dexamethasone Sodium Phosphate (Decadron) 20 mg STK-MED ONCE .ROUTE ; Start at 10:34; Stop 01/15/17 at 10:35; Status DC Ondansetron HCl (Zofran) 4 mg STK-MED ONCE .ROUTE ; Start 01/15/17 at 10:34; Stop 01/15/17 at 10:35; Status DC Lidocaine HCl 100 mg STK-MED ONCE .ROUTE ; Start 01/15/17 at 10:34; Stop at 10:35; Status DC Cellulose 1 each STK-MED ONCE .ROUTE ; Start 01/15/17 at 10:56; Stop 01/15/17 at 10:57; Status DC Bupivacaine HCl/ Epinephrine Bitart (Sensorcain-Mpf Epi 0.5%-1:434317) 30 ml STK -MED ONCE .ROUTE ; Start 01/15/17 at 10:56; Stop 01/15/17 at 10:57; Status DC Phenylephrine HCl 1 mg STK-MED ONCE IV ; Start 01/15/17 at 11:38; Stop 01/15/17 at 11:39; Status DC Ephedrine Sulfate 50 mg STK-MED ONCE IV ; Start 01/15/17 at 11:38; Stop at 11:39; Status DC Rocuronium [place] (Zemuron) 50 mg STK-MED ONCE .ROUTE ; Start 01/15/17 at 12:00 ; Stop 01/15/17 at 12:01; Status DC Fentanyl Citrate (Fentanyl 2ml Vial) 100 mcg STK-MED ONCE .ROUTE ; Start at 12:17; Stop 01/15/17 at 12:18; Status DC Fentanyl Citrate (Fentanyl 2ml Vial) 100 mcg STK-MED ONCE .ROUTE ; Start at 13:15; Stop 01/15/17 at 13:16; Status DC Enoxaparin Sodium (Lovenox 40mg Syringe) 40 mg Q24H SQ Last administered on t 09:21; Start 01/16/17 at 08:00 Sodium Chloride 3 ml 3 ml QSHIFT PRN IV AFTER MEDS AND BLOOD DRAWS; Start 01/15 at 13:30 Lactated Ringer's (Iv Lactated Ringers) 1,000 ml @ 100 mls/hr Q10H IV Last administered on 01/19/17 06:32; Start 01/15/17 at 13:24; Stop 01/19/17 at 08:41 ; Status DC Naloxone HCl 0.4 mg 0.4 mg PRN Q2MIN PRN IV SEE INSTRUCTIONS; Start 01/15/17 at 13:30 Sodium Chloride 1,000 ml @ 25 mls/hr Q24H IV Last administered on 01/17/17 13 :24; Start 01/15/17 at 13:24; Stop 01/19/17 at 08:42; Status DC Hydromorphone HCl (Dilaudid Standard FACULTY NEUROPSYCHOLOGIST) 30 ml @ 0 mls/hr CONT PRN PRN IV PROTOCOL Last administered on 01/17/17 14:57; Start 01/15/17 at 13:30; Stop at 08:41; Status DC Ondansetron HCl (Zofran) 4 mg PRN Q6HRS PRN IV NAUESA, 1ST CHOICE; Start at 13:30 Lorazepam (Ativan) 0.5 mg PRN Q6HRS PRN IV ANXIETY / AGITATION Last administered on 01/19/17 06:28; Start 01/15/17 at 21:30 Lorazepam (Ativan) 0.5 mg PRN Q6HRS PRN IV ANXIETY / AGITATION; Start 01/16/17 at 10:45; Stop 01/18/17 at 10:45; Status DC Diphenhydramine HCl (Benadryl) 25 mg PRN Q6HRS PRN IVP ITCHING Last administered on 01/17/17 22:50; Start 01/17/17 at 03:15 Labetalol HCl (Normodyne) 10 mg PRN Q4HRS PRN IVP HYPERTENSION, SEE COMMENTS Last administered on 01/18/17 23:28; Start 01/18/17 at 09:15 Barium Sulfate (Liquid E-Z Paque) 355 ml 1X ONCE PO Last administered on 13:27; Start 01/18/17 at 13:00; Stop 01/18/17 at 13:01; Status DC Barium Sulfate (E-Z-Hd) 340 gm 1X ONCE PO Last administered on 01/18/17 13:27 ; Start 01/18/17 at 13:00; Stop 01/18/17 at 13:01; Status DC Simethicone/ Sodium Bicarb/ Citric Ac (E-Z-Gas) 1 packet 1X ONCE PO ; Start at 13:00; Stop 01/18/17 at 13:01; Status DC Acetaminophen/ Hydrocodone Bitart (Lortab 7.5-325/ 15ml Oral Solution) 15 ml PRN Q6HRS PRN PO PAIN; Start 01/19/17 at 08:45 Hydromorphone HCl (Dilaudid) 0.4 mg PRN Q4HRS PRN IVP PAIN SEVERE; Start at 08:45 Active Scripts Active Reported Buspirone Hcl 10 Mg Tablet 1 Tab PO BID Trazodone Hcl 100 Mg Tablet 1 Tab PO QHS 1-2 tablet QHS Hydroxychloroquine Sulfate 200 Mg Tablet 1 Tab PO BID Dicyclomine Hcl 20 Mg Tablet 1 Tab PO BID Zanaflex (Tizanidine Hcl) 4 Mg Capsule 1 Cap PO PRN QHS PRN Diclofenac Sodium 75 Mg Tablet.dr 1 Tab PO PRN BID PRN Glycolax (Polyethylene Glycol 3350) 119 Gm Powder 17 Gm PO DAILY PRN Bupropion Hcl Sr (Bupropion Hcl) 150 Mg Tablet.er 1 Tab PO Q12HR NITROGLYCERIN SubLingual (Nitroglycerin) 0.4 Mg Tab.subl 0.4 Mg SL PRN Q5MIN PRN Tramadol Hcl 50 Mg Tablet 1 Tab PO PRN Q4-6HRS PRN Gabapentin 100 Mg Capsule 100 Mg PO TID Abilify (Aripiprazole) 10 Mg Tablet 10 Mg PO DAILY Alendronate Sodium 70 Mg Tablet 1 Tab PO WEEKLY Toprol Xl (Metoprolol Succinate) 25 Mg Tab.er.24h 1 Tab PO BID Viibryd (Vilazodone Hydrochloride) 40 Mg Tablet 1 Tab PO DAILY Methotrexate (Methotrexate Sodium) 2.5 Mg Tablet 5 Mg PO WEEKLY Plaquenil (Hydroxychloroquine Sulfate) 200 Mg Tablet 400 Mg PO BID Lisinopril 10 Mg Tablet 1 Tab PO DAILY Folic Acid 1 Mg Tablet 1 Tab PO DAILY Niacin 500 Mg Tablet.er 500 Mg PO HS Atorvastatin Calcium 20 Mg Tablet 20 Mg PO QHS Vitals/I & O Vital Sign - Last 24 Hours 01/18/17 01/18/17 01/18/17 01/18/17 19:05 20:00 23:00 23:28 Temp 98.2 98.1 98.2 98.1 Pulse 95 85 96 Resp 18 18 B/P 161/88 153/74 173/98 Pulse Ox 99 97 O2 Delivery Room Air Room Air Room Air 01/19/17 01/19/17 01/19/17 01/19/17 03:00 07:00 07:45 11:00 Temp 98.2 98.0 98.6 98.2 98.0 98.6 Pulse 85 88 94 Resp 18 20 B/P 156/85 160/85 141/98 Pulse Ox 97 96 96 O2 Delivery Room Air Room Air Room Air Room Air Intake and Output 01/18/17 01/18/17 01/19/17 15:00 23:00 07:00 Intake Total 600 ml Balance 600 ml HUANG VILLA MD Jan 19, 2017 15:07
[2017-01-19] MEDS: HYDROCODONE/APAP 7.5/325MG ORAL 15 ML SOLUTION. PO PRN (16:54)
[2017-01-19] MEDS: ARIPIPRAZOLE 5 MG TABLET. PO SCH (16:55)
[2017-01-19] MEDS: LISINOPRIL 10 MG TABLET PO SCH (16:57)
[2017-01-19 19:00] VITALS: BP 138/75
[2017-01-19] MEDS: METOPROLOL SUCC 24HR ER 25 MG TAB.ER.24H. PO SCH (20:50)
[2017-01-19] MEDS: busPIRone 10 MG TABLET. PO SCH (20:50)
[2017-01-19] MEDS: buPROPion SR 150 MG TABLET.SA PO SCH (20:50)
[2017-01-19] MEDS ORDERED: traZODone 100 MG TABLET. PO SCH (21:00)
[2017-01-19 23:00] VITALS: BP 103/62
[2017-01-20 03:00] VITALS: BP 170/74
[2017-01-20 07:00] VITALS: BP 128/77
[2017-01-20] MEDS ORDERED: NON FORMULARY ITEM (Vilazodone Hydrochloride (Viibryd) 1 TAB) PO SCH (09:00)
[2017-01-20] MEDS: buPROPion SR 150 MG TABLET.SA PO SCH (09:21)
[2017-01-20] MEDS: LISINOPRIL 10 MG TABLET PO SCH (09:22)
[2017-01-20] MEDS: busPIRone 10 MG TABLET. PO SCH (09:22)
[2017-01-20] MEDS: ARIPIPRAZOLE 5 MG TABLET. PO SCH (09:22)
[2017-01-20] MEDS: METOPROLOL SUCC 24HR ER 25 MG TAB.ER.24H. PO SCH (09:23)
[2017-01-20] MEDS: ENOXAPARIN 40 MG/0.4 ML DISP.SYRIN. SQ SCH (09:23)
[2017-01-20] MEDS: HYDROCODONE/APAP 7.5/325MG ORAL 15 ML SOLUTION. PO PRN (09:40)
--- NOTE | 2017-01-20 09:46 | PDOC ---
JASMINA ENRIQUE APRN 01/20/17 0946: SURGICAL PROGRESS NOTE Subjective tolerating diet, feeling great had BM Vital Signs Vital Signs Date Time Temp Pulse Resp B/P Pulse Ox O2 Delivery O2 Flow Rate FiO2 01/20/17 09:23 75 128/77 01/20/17 07:00 98.2 20 96 Room Air 98.2 I&O Intake and Output 01/20/17 07:00 Intake Total 0 ml Output Total 50 ml Balance -50 ml Intake Oral 0 ml Drainage Total 50 ml # Voids 6 General: Alert, Oriented X3, Cooperative, No acute distress Abdomen: Soft, Other (incision c/d/i, no erythema, ROSY serosang ) Problem List Problems Medical Problems: (1) Achalasia Status: Acute Assessment/Plan s/p Heller myomectomy advance diet home after lunch, with drain FU in clinic with Dr Rhodes for removal Problems: FINA ARREOLA MD 01/20/17 1148: SURGICAL PROGRESS NOTE Assessment/Plan Reviewed, agree with above Problems: JASMINA ENRIQUE APRN Jan 20, 2017 09:46 FINA ARREOLA MD Jan 20, 2017 11:48
[2017-01-20] MEDS ORDERED: HYDR15SO4 PO (09:51)
--- NOTE | 2017-01-20 09:54 | PDOC3 ---
Discharge Summary* Date of Admission: Jan 15, 2017 Date of Discharge: Jan 19, 2017 Admitting Diagnosis Problems Medical Problems: (1) Achalasia Status: Acute Final Diagnosis Problems Medical Problems: (1) Achalasia Status: Acute CONSULTS PCP Procedures Laparoscopic converted to open Heller myotomy Brief Hospital Course Ms. Harris is a 61 old female who presented with achalasia, she underwent the above procedure. Postoperatively tolerating diet, ambulating, urinating well, and pain managed on oral medication. She will discharge home and follow up for drain removal Disposition/Orders: D/C to Home CONDITION AT DISCHARGE: Stable Diet: Mechanical Soft/Chopped Scheduled Alendronate Sodium (Alendronate Sodium) 1 TAB PO WEEKLY (Reported) Aripiprazole (Abilify) 10 MG PO DAILY (Reported) Atorvastatin Calcium (Atorvastatin Calcium) 20 MG PO QHS (Reported) Bupropion Hcl (Bupropion Hcl Sr) 1 TAB PO Q12HR (Reported) Buspirone Hcl (Buspirone Hcl) 1 TAB PO BID (Reported) Dicyclomine Hcl (Dicyclomine Hcl) 1 TAB PO BID (Reported) Folic Acid (Folic Acid) 1 TAB PO DAILY (Reported) Gabapentin (Gabapentin) 100 MG PO TID (Reported) Hydroxychloroquine Sulfate (Plaquenil) 400 MG PO BID (Reported) Hydroxychloroquine Sulfate (Hydroxychloroquine Sulfate) 1 TAB PO BID (Reported) Lisinopril (Lisinopril) 1 TAB PO DAILY (Reported) Methotrexate Sodium (Methotrexate) 5 MG PO WEEKLY (Reported) Metoprolol Succinate (Toprol Xl) 1 TAB PO BID (Reported) Niacin (Niacin) 500 MG PO HS (Reported) Trazodone Hcl (Trazodone Hcl) 1 TAB PO QHS (Reported) Vilazodone Hydrochloride (Viibryd) 1 TAB PO DAILY (Reported) Scheduled PRN Diclofenac Sodium (Diclofenac Sodium) 1 TAB PO PRN BID PRN PRN PAIN (Reported) Nitroglycerin (NITROGLYCERIN SubLingual) 0.4 MG SL PRN Q5MIN PRN PRN CHEST PAIN (Reported) Polyethylene Glycol 3350 (Glycolax) 17 GM PO DAILY PRN PRN CONSTIPATION ( Reported) Tizanidine Hcl (Zanaflex) 1 CAP PO PRN QHS PRN PRN MUSCLE SPASMS (Reported) Tramadol Hcl (Tramadol Hcl) 1 TAB PO PRN Q4-6HRS PRN PRN PAIN (Reported) FOLLOW UP APPOINTMENT: 1 week Time Spent Total time spent with patient [] minutes for coordination of care, counseling, and education. JASMINA ENRIQUE APRN Jan 20, 2017 09:54
[2017-01-20 11:00] VITALS: BP 124/81
--- NOTE | 2017-01-20 11:46 | PDOC ---
PROGRESS NOTES Subjective Subjective Patient without complaint. Feels much better, ready to home today. Objective Objective Vital Signs Date Time Temp Pulse Resp B/P Pulse Ox O2 Delivery O2 Flow Rate FiO2 01/20/17 11:00 98.0 60 20 124/81 96 Room Air 98.0 01/16/17 20:00 1.0 Intake and Output 01/20/17 07:00 Intake Total 0 ml Output Total 50 ml Balance -50 ml Intake Oral 0 ml Drainage Total 50 ml # Voids 6 Physical Exam Abdomen: Normal bowel sounds, Soft, No masses, Other (mild diffuse TTP) Heart: Regular rate Extremities: No edema General: Alert, Oriented X3, No acute distress Lungs: Clear to auscultation Assessment Assessment Problems Medical Problems: (1) Achalasia Status: Acute Plan Plan of Care 1. Achalasia, POD #5 myotomy - doing well, home today per General Surgery. Soft diet discussed. 2. chronic anxiety - much improved with her usual meds, continue. Follow up with her Psychiatrist as advised. 3. HTN - controlled, continue home meds. Comment Review of Relevant I have reviewed the following items akira (where applicable) has been applied. Medications Current Medications Ondansetron HCl (Zofran) 4 mg PRN Q6HRS PRN IV Nausea; Start 01/15/17 at 07:00 ; Stop 01/16/17 at 06:59; Status DC Fentanyl Citrate (Fentanyl 2ml Vial) 25 mcg PRN Q5MIN PRN IV MILD PAIN; Start 01/15/17 at 07:00; Stop 01/16/17 at 06:59; Status DC Fentanyl Citrate (Fentanyl 2ml Vial) 50 mcg PRN Q5MIN PRN IV MODERATE PAIN Last administered on 01/15/17 14:57; Start 01/15/17 at 07:00; Stop 01/16/17 at 06:59; Status DC Morphine Sulfate 1 mg 1 mg PRN Q10MIN PRN IV SEVERE PAIN; Start 01/15/17 at 07: 00; Stop 01/16/17 at 06:59; Status DC Lactated Ringer's (Iv Lactated Ringers) 1,000 ml @ 0 mls/hr Q0M IV Last administered on 01/15/17 10:13; Start 01/15/17 at 07:00; Stop 01/15/17 at 18:59 ; Status DC Lidocaine HCl 2 ml 1X PRN PRN ID IV START; Start 01/15/17 at 07:00; Stop at 06:59; Status DC Hydromorphone HCl (Dilaudid) 0.5 mg PRN Q10MIN PRN IV SEVERE PAIN, Second choice; Start 01/15/17 at 07:00; Stop 01/16/17 at 06:59; Status DC Prochlorperazine Edisylate 5 mg 5 mg PACU PRN PRN IV NAUSEA; Start 01/15/17 at 07:00; Stop 01/16/17 at 06:59; Status DC Cefazolin Sodium (Ancef 1gm Ivpb For Omni) 50 ml @ 100 mls/hr 1X ONCE IV Last administered on 01/15/17t 11:28; Start 01/15/17 at 08:00; Stop 01/15/17 at 08:29; Status DC Sevoflurane (Ultane) 60 ml STK-MED ONCE IH ; Start 01/15/17 at 10:33; Stop 01/15 at 10:34; Status DC Midazolam HCl (Versed) 2 mg STK-MED ONCE .ROUTE ; Start 01/15/17 at 10:33; Stop 01/15/17 at 10:34; Status DC Fentanyl Citrate (Fentanyl 2ml Vial) 100 mcg STK-MED ONCE .ROUTE ; Start at 10:33; Stop 01/15/17 at 10:34; Status DC Glycopyrrolate (Robinul) 1 mg STK-MED ONCE .ROUTE ; Start 01/15/17 at 10:33; Stop 01/15/17 at 10:34; Status DC Neostigmine Methylsulfate 5 mg STK-MED ONCE .ROUTE ; Start 01/15/17 at 10:33; Stop 01/15/17 at 10:34; Status DC Rocuronium Trent 50 mg 50 mg STK-MED ONCE .ROUTE ; Start 01/15/17 at 10:33; Stop 01/15/17 at 10:34; Status DC Propofol (Diprivan) 20 ml @ As Directed STK-MED ONCE IV ; Start 01/15/17 at 10: 34; Stop 01/15/17 at 10:35; Status DC Ketorolac Tromethamine (Toradol For Or Only) 30 mg STK-MED ONCE INJ ; Start at 10:34; Stop 01/15/17 at 10:35; Status DC Dexamethasone Sodium Phosphate (Decadron) 20 mg STK-MED ONCE .ROUTE ; Start at 10:34; Stop 01/15/17 at 10:35; Status DC Ondansetron HCl (Zofran) 4 mg STK-MED ONCE .ROUTE ; Start 01/15/17 at 10:34; Stop 01/15/17 at 10:35; Status DC Lidocaine HCl 100 mg STK-MED ONCE .ROUTE ; Start 01/15/17 at 10:34; Stop at 10:35; Status DC Cellulose 1 each STK-MED ONCE .ROUTE ; Start 01/15/17 at 10:56; Stop 01/15/17 at 10:57; Status DC Bupivacaine HCl/ Epinephrine Bitart (Sensorcain-Mpf Epi 0.5%-[id number]) 30 ml STK -MED ONCE .ROUTE ; Start 01/15/17 at 10:56; Stop 01/15/17 at 10:57; Status DC Phenylephrine HCl 1 mg STK-MED ONCE IV ; Start 01/15/17 at 11:38; Stop 01/15/17 at 11:39; Status DC Ephedrine Sulfate 50 mg STK-MED ONCE IV ; Start 01/15/17 at 11:38; Stop at 11:39; Status DC Rocuronium Trent (Zemuron) 50 mg STK-MED ONCE .ROUTE ; Start 01/15/17 at 12:00 ; Stop 01/15/17 at 12:01; Status DC Fentanyl Citrate (Fentanyl 2ml Vial) 100 mcg STK-MED ONCE .ROUTE ; Start at 12:17; Stop 01/15/17 at 12:18; Status DC Fentanyl Citrate (Fentanyl 2ml Vial) 100 mcg STK-MED ONCE .ROUTE ; Start at 13:15; Stop 01/15/17 at 13:16; Status DC Enoxaparin Sodium (Lovenox 40mg Syringe) 40 mg Q24H SQ Last administered on t 09:23; Start 01/16/17 at 08:00 Sodium Chloride 3 ml 3 ml QSHIFT PRN IV AFTER MEDS AND BLOOD DRAWS; Start 01/15 at 13:30 Lactated Ringer's (Iv Lactated Ringers) 1,000 ml @ 100 mls/hr Q10H IV Last administered on 01/19/17 06:32; Start 01/15/17 at 13:24; Stop 01/19/17 at 08:41 ; Status DC Naloxone HCl 0.4 mg 0.4 mg PRN Q2MIN PRN IV SEE INSTRUCTIONS; Start 01/15/17 at 13:30 Sodium Chloride 1,000 ml @ 25 mls/hr Q24H IV Last administered on 01/17/17 13 :24; Start 01/15/17 at 13:24; Stop 01/19/17 at 08:42; Status DC Hydromorphone HCl (Dilaudid Standard CARTON FILLER) 30 ml @ 0 mls/hr CONT PRN PRN IV PROTOCOL Last administered on 01/17/17 14:57; Start 01/15/17 at 13:30; Stop at 08:41; Status DC Ondansetron HCl (Zofran) 4 mg PRN Q6HRS PRN IV NAUESA, 1ST CHOICE; Start at 13:30 Lorazepam (Ativan) 0.5 mg PRN Q6HRS PRN IV ANXIETY / AGITATION Last administered on 01/19/17 20:50; Start 01/15/17 at 21:30 Lorazepam (Ativan) 0.5 mg PRN Q6HRS PRN IV ANXIETY / AGITATION; Start 01/16/17 at 10:45; Stop 01/18/17 at 10:45; Status DC Diphenhydramine HCl (Benadryl) 25 mg PRN Q6HRS PRN IVP ITCHING Last administered on 01/17/17 22:50; Start 01/17/17 at 03:15 Labetalol HCl (Normodyne) 10 mg PRN Q4HRS PRN IVP HYPERTENSION, SEE COMMENTS Last administered on 01/18/17 23:28; Start 01/18/17 at 09:15 Barium Sulfate (Liquid E-Z Paque) 355 ml 1X ONCE PO Last administered on 13:27; Start 01/18/17 at 13:00; Stop 01/18/17 at 13:01; Status DC Barium Sulfate (E-Z-Hd) 340 gm 1X ONCE PO Last administered on 01/18/17 13:27 ; Start 01/18/17 at 13:00; Stop 01/18/17 at 13:01; Status DC Simethicone/ Sodium Bicarb/ Citric Ac (E-Z-Gas) 1 packet 1X ONCE PO ; Start at 13:00; Stop 01/18/17 at 13:01; Status DC Acetaminophen/ Hydrocodone Bitart (Lortab 7.5-325/ 15ml Oral Solution) 15 ml PRN Q6HRS PRN PO PAIN Last administered on 01/20/17 09:40; Start 01/19/17 at 08:45 Hydromorphone HCl (Dilaudid) 0.4 mg PRN Q4HRS PRN IVP PAIN SEVERE; Start at 08:45 Bupropion HCl (Wellbutrin Sr) 150 mg Q12HR PO Last administered on 01/20/17 09 :21; Start 01/19/17 at 21:00 Buspirone HCl (Buspar) 10 mg BID PO Last administered on 01/20/17 09:22; Start 01/19/17 at 21:00 Lisinopril (Prinivil) 10 mg DAILY PO Last administered on 01/20/17 09:22; Start 01/19/17 at 15:15 Metoprolol Succinate (Toprol Xl) 25 mg BID PO Last administered on 01/20/17 09 :23; Start 01/19/17 at 21:00 Trazodone HCl (Desyrel) 100 mg QHS PO Last administered on 01/19/17 20:50; Start 01/19/17 at 21:00 Non-Formulary Medication 1 tab DAILY PO ; Start 01/20/17 at 09:00; Status UNV Aripiprazole (Abilify) 10 mg DAILY PO Last administered on 01/20/17 09:22; Start 01/19/17 at 16:00 Active Scripts Active Reported Buspirone Hcl 10 Mg Tablet 1 Tab PO BID Trazodone Hcl 100 Mg Tablet 1 Tab PO QHS 1-2 tablet QHS Hydroxychloroquine Sulfate 200 Mg Tablet 1 Tab PO BID Dicyclomine Hcl 20 Mg Tablet 1 Tab PO BID Zanaflex (Tizanidine Hcl) 4 Mg Capsule 1 Cap PO PRN QHS PRN Diclofenac Sodium 75 Mg Tablet.dr 1 Tab PO PRN BID PRN Glycolax (Polyethylene Glycol 3350) 119 Gm Powder 17 Gm PO DAILY PRN Bupropion Hcl Sr (Bupropion Hcl) 150 Mg Tablet.er 1 Tab PO Q12HR NITROGLYCERIN SubLingual (Nitroglycerin) 0.4 Mg Tab.subl 0.4 Mg SL PRN Q5MIN PRN Tramadol Hcl 50 Mg Tablet 1 Tab PO PRN Q4-6HRS PRN Gabapentin 100 Mg Capsule 100 Mg PO TID Abilify (Aripiprazole) 10 Mg Tablet 10 Mg PO DAILY Alendronate Sodium 70 Mg Tablet 1 Tab PO WEEKLY Toprol Xl (Metoprolol Succinate) 25 Mg Tab.er.24h 1 Tab PO BID Viibryd (Vilazodone Hydrochloride) 40 Mg Tablet 1 Tab PO DAILY Methotrexate (Methotrexate Sodium) 2.5 Mg Tablet 5 Mg PO WEEKLY Plaquenil (Hydroxychloroquine Sulfate) 200 Mg Tablet 400 Mg PO BID Lisinopril 10 Mg Tablet 1 Tab PO DAILY Folic Acid 1 Mg Tablet 1 Tab PO DAILY Niacin 500 Mg Tablet.er 500 Mg PO HS Atorvastatin Calcium 20 Mg Tablet 20 Mg PO QHS Vitals/I & O Vital Sign - Last 24 Hours 01/19/17 01/19/17 01/19/17 01/19/17 15:00 16:54 16:57 18:00 Temp 98.6 98.6 Pulse 88 88 Resp 20 B/P 156/82 156/82 Pulse Ox 100 O2 Delivery Room Air Room Air Room Air 01/19/17 01/19/17 01/19/17 01/19/17 19:00 20:00 20:50 23:00 Temp 98.1 97.9 98.1 97.9 Pulse 80 80 68 Resp 20 18 B/P 138/75 138/75 103/62 Pulse Ox 100 98 O2 Delivery Room Air Room Air Room Air 01/20/17 01/20/17 01/20/17 01/20/17 03:00 07:00 09:22 09:23 Temp 97.7 98.2 97.7 98.2 Pulse 72 75 75 75 Resp 18 20 B/P 170/74 128/77 128/77 128/77 Pulse Ox 97 96 O2 Delivery Room Air Room Air 01/20/17 11:00 Temp 98.0 98.0 Pulse 60 Resp 20 B/P 124/81 Pulse Ox 96 O2 Delivery Room Air Intake and Output 01/19/17 01/19/17 01/20/17 15:00 23:00 07:00 Intake Total 0 ml Output Total 50 ml Balance -50 ml 0 ml HUANG VILLA MD Jan 20, 2017 11:46
== END 2017-01-20 14:45 | disposition home or self-care (01) | DRG 328 ==
LOC: OPSVCIP 09:06 → 4 NORTH 16:13
PROVIDERS: ADMIT Surgery; ATTEND Surgery
PROC: 0D840ZZ Division of Esophagogastric Junction, Open Approach (ICD-10-PCS; principal; 2017-01-15 10:30)
DX: K22.0 Achalasia of cardia (principal); E78.00 Pure hypercholesterolemia, unspecified; F41.1 Generalized anxiety disorder; F43.10 Post-traumatic stress disorder, unspecified; G47.33 Obstructive sleep apnea (adult) (pediatric); I10 Essential (primary) hypertension; K21.9 Gastro-esophageal reflux disease without esophagitis; K58.9 Irritable bowel syndrome, unspecified; M32.9 Systemic lupus erythematosus, unspecified; F32.9 Major depressive disorder, single episode, unspecified; M19.90 Unspecified osteoarthritis, unspecified site; M79.7 Fibromyalgia; Z80.0 Family history of malignant neoplasm of digestive organs; Z80.41 Family history of malignant neoplasm of ovary; Z86.711 Personal history of pulmonary embolism; Z90.710 Acquired absence of both cervix and uterus; Z98.84 Bariatric surgery status; Z53.31 Laparoscopic surgical procedure converted to open procedure
CPT/HCPCS: 36415; 74000; 74220; 80048; 80053; 85007; 85027; J0690; J1100; J1170; J1200; J1650; J1885; J2060; J2250; J2370; J2405; J2704; J2710; J3010; J3490; J7030; J7120; 97116; 97530; 97535

== ENCOUNTER → 2017-02-14 | Outpatient (CLI) | payer BC, OTHER ==
[2017-01-20 11:00] VITALS: BP 124/81
[~2017-02-14] MED LIST changes: -CEFAZOLIN 1GM IVPB FOR OMNI 50 ML IV ONE; -FENTANYL PF 100 MCG/2 ML VIAL. IV PRN; +HYDR15SO4 PO; -HYDROMORPHONE 2 MG/ML VIAL. IV PRN; -IV RINGERS,LACTATED 1000ML 1,000 ML IV SCH; -LIDOCAINE 1% 1 ML SYRINGE. ID PRN; -MORPHINE SULFATE 2 MG/ML DISP.SYRIN. IV PRN; -ONDANSETRON PF 4 MG/2 ML VIAL. IV PRN; -PROCHLORPERAZINE 10 MG/2 ML VIAL. IV PRN
--- NOTE | 2017-02-14 12:16 | KCIC ---
PROCEDURE MRI brain without contrast. HISTORY Memory loss. Gait disorder. Symptoms over the past year. TECHNIQUE Sagittal T1, axial T1, axial T2, axial FLAIR, axial T2 gradient, coronal T2, and diffusion imaging with ADC map were performed. Sequences were repeated for motion. COMPARISON August 25, 2015. FINDINGS The ventricles and sulci are within normal limits for age. A few scattered FLAIR hyperintensities in the supratentorial white matter are nonspecific but most suggestive of minimal small vessel ischemic disease. 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 There is no restricted diffusion to suggest an acute infarct. There is no intracranial hemorrhage or extra-axial fluid collection. There is no mass effect or midline shift. Cervicomedullary junction is unremarkable. Intracranial flow voids are preserved. Paranasal sinuses and mastoid air cells are clear. Fluid is noted in the optic sheaths, a nonspecific finding that can be associated with elevated intracranial pressures. IMPRESSION - No acute intracranial findings. - Brain parenchymal volume loss and minimal probable small-vessel ischemic disease. Electronically signed by: Dino Sepulveda MD (Feb 14, 2017 12:14:46)
== END | disposition home or self-care (01) ==
LOC: KCIC MRI 10:45
PROVIDERS: ATTEND Psychiatry & Neurology Neurology with Special Qualifications in Child Neurology
DX: R26.89 Other abnormalities of gait and mobility (principal); R41.3 Other amnesia
CPT/HCPCS: 70551

== ENCOUNTER 2017-05-29 18:26 | Observation (INO) | payer BC, OTHER ==
[~2017-05-29] VITALS: Ht 162.6 cm; Wt 72.6 kg
[~2017-05-29 18:26] MED LIST changes: -ARIP10TA13 PO; +ARIP10TA9 PO; -BIOT25005 PO; +BIOT25006 PO; -CALC500T50 PO; +CALC500T54 PO; +DOCU-109 PO; -DOCU-27 PO; -ERGO500012 PO; +ERGO500027 PO; +NITR0.4T22 SL; -NITR0.4T6 SL; -TRAM-29 PO; +TRAM-48 PO
[2017-05-29 18:47] LABS: BASO % 1 % (0-3); EOS % 6 % (0-3); HEMATOCRIT 36.5 % (36.0-47.0); HEMOGLOBIN 11.8 g/dL (12.0-15.5); LYMPH # 1.9 x10^3/uL (1.0-4.8); LYMPH % 44 % (24-48); MEAN CORPUSCULAR HEMOGLOBIN 28 pg (25-35); MEAN CORPUSCULAR HGB CONC 32 g/dL (31-37); MEAN CORPUSCULAR VOLUME 87 fL (79-100); MONO % 13 % (0-9); NEUT % 36 % (31-73); PLATELET COUNT 220 x10^3/uL (140-400); RED CELL DISTRIBUTION WIDTH 15.9 % (11.5-14.5); WHITE BLOOD COUNT 4.2 x10^3/uL (4.0-11.0)
[2017-05-29 19:00] LABS: CREATININE 0.9 mg/dL (0.6-1.0); POTASSIUM 4.1 mmol/L (3.5-5.1)
[2017-05-29 19:06] LABS: ALBUMIN 3.8 g/dL (3.4-5.0); DIRECT BILIRUBIN 0.1 mg/dL (0.0-0.2); TOTAL BILIRUBIN 0.4 mg/dL (0.2-1.0); TOTAL PROTEIN 6.9 g/dL (6.4-8.2)
[2017-05-29] MEDS ORDERED: ASPIRIN CHEWABLE 81 MG TABLET. PO ONE (19:45)
--- NOTE | 2017-05-29 19:46 | PHYS DOC ---
Past Medical History Past Medical History: Depression, DVT, Fibromyalgia, GERD, High Cholesterol, Hypertension, VT, Other Additional Past Medical Histor: Lupus Past Surgical History: Gastric Bypass, Hysterectomy, Tubal ligation Additional Past Surgical Histo: SCAR TISSUE FROM ABD. R/O HYSTERECTOMY, 2 ESOPHAGEAL DILATIONS, NECK SX Alcohol Use: Rarely Drug Use: None Adult General Chief Complaint Chief Complaint: CHEST PAIN HPI HPI 61-year-old female with a history of lupus hypertension high cholesterol and a history of VT in the past presenting to the emergency department today with a chest pain with diaphoresis nausea and vomiting intermittently. The pain as a pressure sensation that is mild nonradiating and is been present for more than a week. She denies ever seeing a director of leadership development, however on chart review the pt has had a cath in the past that was neg. She denies ever having stent placement.The patient denies unilateral leg swelling hemoptysis family or personal history of blood clotting disorders. The pt denies recent immobilization or surgery. Review of systems is negative for fevers chills cough abdominal pain. Positive for diaphoresis. Negative for polyuria or dysuria. All other review of systems is negative unless otherwise noted in history of present illness. ED course: 61-year-old female presenting to the emergency department today with chest pain. Initial triage vital signs afebrile with mild tachycardia. Otherwise fairly unremarkable. EKG shows sinus rhythm with a regular rate. ST segments congruent. Mildly prolonged QT. Not suggestive of ACS. Read by myself. Chest x-ray obtained. Chest x-ray reviewed by myself shows no obvious infiltrate or pneumothorax present. No obvious acute cardiopulmonary process present. Blood work obtained which was unremarkable. Heart score calculated to be 5. Patient was then admitted for further evaluation workup and care including cardiology consultation. Review of Systems Review of Systems SEE ABOVE. Allergies Allergies Allergies Coded Allergies Type Severity Reaction Last Updated Verified No Known Drug Allergies 01/15/17 No Physical Exam Physical Exam SEE ABOVE Constitutional: Well developed, well nourished, no acute distress, non-toxic appearance. [] HENT: Normocephalic, atraumatic, bilateral external ears normal, oropharynx moist, no oral exudates, nose normal. [] Eyes: PERRLA, EOMI, conjunctiva normal, no discharge. [] Neck: Normal range of motion, no tenderness, supple, no stridor. [] Cardiovascular:Heart rate regular rhythm, no murmur [] Lungs & Thorax: Bilateral breath sounds clear to auscultation [] Abdomen: Bowel sounds normal, soft, no tenderness, no masses, no pulsatile masses. [] Skin: Warm, dry, no erythema, no rash. [] Back: No tenderness, no CVA tenderness. [] Extremities: No tenderness, no cyanosis, no clubbing, ROM intact, no edema. [] Neurologic: Alert and oriented X 3, normal motor function, normal sensory function, no focal deficits noted. [] Psychologic: Affect normal, judgement normal, mood normal. [] Current Patient Data Vital Signs Vital Signs Date Time Temp Pulse Resp B/P (MAP) Pulse Ox O2 Delivery O2 Flow Rate FiO2 05/29/17 18:40 98.5 95 18 145/96 (112) 98 Room Air 98.5 Lab Values Laboratory Tests Test 05/29/17 18:40 White Blood Count 4.2 x10^3/uL (4.0-11.0) Red Blood Count 4.20 x10^6/uL (3.50-5.40) Hemoglobin 11.8 g/dL (12.0-15.5) L Hematocrit 36.5 % (36.0-47.0) Mean Corpuscular Volume 87 fL (79-100) Mean Corpuscular Hemoglobin 28 pg (25-35) Mean Corpuscular Hemoglobin Concent 32 g/dL (31-37) Red Cell Distribution Width 15.9 % (11.5-14.5) H Platelet Count 220 x10^3/uL (140-400) Neutrophils (%) (Auto) 36 % (31-73) Lymphocytes (%) (Auto) 44 % (24-48) Monocytes (%) (Auto) 13 % (0-9) H Eosinophils (%) (Auto) 6 % (0-3) H Basophils (%) (Auto) 1 % (0-3) Neutrophils # (Auto) 1.5 x10^3uL (1.8-7.7) L Lymphocytes # (Auto) 1.9 x10^3/uL (1.0-4.8) Monocytes # (Auto) 0.5 x10^3/uL (0.0-1.1) Eosinophils # (Auto) 0.2 x10^3/uL (0.0-0.7) Basophils # (Auto) 0.0 x10^3/uL (0.0-0.2) Sodium Level 145 mmol/L (136-145) Potassium Level 4.1 mmol/L (3.5-5.1) Chloride Level 107 mmol/L (98-107) Carbon Dioxide Level 30 mmol/L (21-32) Anion Gap 8 (6-14) Blood Urea Nitrogen 19 mg/dL (7-20) Creatinine 0.9 mg/dL (0.6-1.0) Estimated GFR (Cockcroft-Gault) 77.0 Glucose Level 75 mg/dL (70-99) Calcium Level 9.0 mg/dL (8.5-10.1) Total Bilirubin 0.4 mg/dL (0.2-1.0) Direct Bilirubin 0.1 mg/dL (0.0-0.2) Aspartate Amino Transferase (AST) 24 U/L (15-37) Alanine Aminotransferase (ALT) 34 U/L (14-59) Alkaline Phosphatase 100 U/L (46-116) Troponin I Quantitative < 0.017 ng/mL (0.000-0.055) CI-Mcd-E-Type Natriuretic Peptide 40 pg/mL (0-124) Total Protein 6.9 g/dL (6.4-8.2) Albumin 3.8 g/dL (3.4-5.0) Lipase 190 U/L (73-393) Laboratory Tests 05/29/17 18:40 Laboratory Tests 05/29/17 18:40 EKG EKG [] Radiology/Procedures Radiology/Procedures [] Course & Med Decision Making Course & Med Decision Making Pertinent Labs and Imaging studies reviewed. (See chart for details) [] Dragon Disclaimer Dragon Disclaimer This electronic medical record was generated, in whole or in part, using a voice recognition dictation system. Departure Departure Impression: Primary Impression: Chest pain Disposition: ADMITTED INPATIENT Admitting Physician: Dyan Daugherty Condition: STABLE Referrals: DYAN DAUGHERTY MD (PCP) ZAHRA HERNÁNDEZ MD May 29, 2017 19:46
[2017-05-29] MEDS ORDERED: ONDANSETRON PF 4 MG/2 ML VIAL. IV PRN (20:00)
[2017-05-29] MEDS: NITROGLYCERIN SUBLINGUAL 0.4 MG BOTTLE OF 25. SL PRN ×2 (20:02→20:07)
--- NOTE | 2017-05-29 20:10 | EKG ---
[facility] [address] [place] [address] Test Date: 2017-05-29 Test Time: 18:35:46 Pat Name: OCTAVIO PULIDO Department: Room: Gender: F Sample Cutter: : 1955 Requested By: ZAHRA HERNÁNDEZ Order Number: [id number] Reading MD: Messi Gilbert Measurements Intervals [place] Rate: 82 P: 49 NE: 132 QRS: 19 QRSD: 86 T: 32 QT: 406 QTc: 478 Interpretive Statements SINUS RHYTHM LEFT ATRIAL ABNORMALITY PROLONGED QT RI6.01 Unconfirmed report Compared to ECG 08/18/2016 06:32:52 Atrial abnormality now present Prolonged QT interval now present Electronically Signed On 05-30-2017 15:51:53 CDT by Messi Gilbert
[2017-05-29 20:27] VITALS: BP 126/70
[2017-05-29] MEDS: ATORVASTATIN CALCIUM 20 MG TABLET PO SCH (22:49)
[2017-05-29] MEDS: traZODone 100 MG TABLET. PO SCH (22:49)
[2017-05-29] MEDS: busPIRone 10 MG TABLET. PO SCH (22:49)
[2017-05-29] MEDS: GABAPENTIN 100 MG CAPSULE. PO SCH (22:50)
[2017-05-29] MEDS: HYDROXYCHLOROQUINE 200 MG TABLET PO SCH (22:50)
[2017-05-29] MEDS: buPROPion SR 150 MG TABLET.SA PO SCH (22:52)
[2017-05-29 23:06] VITALS: BP 131/65
[2017-05-30 03:00] VITALS: BP_SYST 109; BP_SYST 124; BP_DIAS 65; BP_DIAS 75
[2017-05-30 07:00] VITALS: BP 133/64
--- NOTE | 2017-05-30 07:22 | RAD ---
Single view upright chest radiograph 05/29/2017 Clinical indication: Chest pain. Comparison June 10, 2016. Findings: Cardiac and mediastinal silhouettes are within normal limits. No pleural effusion, pneumothorax or focal consolidation. Partial visualization of lower ACDF hardware. Impression: No acute cardiopulmonary abnormality.
[2017-05-30] MEDS: MORPHINE SULFATE 2 MG/ML DISP.SYRIN. IV PRN ×2 (08:24→14:52)
[2017-05-30] MEDS: GABAPENTIN 100 MG CAPSULE. PO SCH (08:25)
[2017-05-30] MEDS: busPIRone 10 MG TABLET. PO SCH (08:25)
[2017-05-30] MEDS: buPROPion SR 150 MG TABLET.SA PO SCH ×2 (08:25→20:25)
[2017-05-30] MEDS: HYDROXYCHLOROQUINE 200 MG TABLET PO SCH ×2 (08:25→20:26)
--- NOTE | 2017-05-30 09:40 | PDOC2 ---
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 Reports that this has been going on in the last 2 weeks and has become more frequent in the last 3 days. Reports of mid chest pressure radiating to mid back and shoulders. Also associated with MAC, nausea, feeling of malaise. She has not have been having any symptoms of lupus flare up. No fever or chills but sometimes she does become diaphoretic. She did have PE in the past and her symptoms appear to be the same as that. She also had recent esophageal surgery and has been doing well till in the last few weeks she has been having sensation of pressure to her epigastric/sternal junction when she eats solid food and actually takes about 20 minutes before that sensation gets better. Denies any dizziness, palpitations. With her symptoms recurring she has been more anxious lately. De nies any recent falls, injury. Denies any use of NSAIDS. PAST MEDICAL HISTORY Cardiovascular: HTN, Hyperlipidemia Pulmonary: Pulmonary embolus (with DVT), Other (PATSY) GI: GERD, Irritable bowel disease, Other (achalasia) Heme/Onc: Other (SLE) Hepatobiliary: Cholelithiasis Psych: Anxiety, Depression, Other (PTSD) Musculoskeletal: Osteoarthritis Rheumatologic: Fibromyalgia PAST SURGICAL HISTORY Past Surgical History [place]/BSO, 2010 gastric bypass, lysis of adhesion, breast reduction, carpal tunnel release, esophageal dilatation, open heller myotomy, cervical fusion FAMILY HISTORY Family History: Cancer, Other (SLE siter) SOCIAL HISTORY Smoke: No ALCOHOL: occassional Drugs: None Lives: with Family CURRENT MEDICATIONS CURRENT MEDICATIONS Current Medications Medications (Trade) Dose Ordered Sig/Florencio Route PRN Reason Start Time Stop Time Status Last Admin Dose Admin Aspirin (Children'S Aspirin) 324 mg 1X ONCE PO 05/29/17 19:45 05/29/17 19:46 DC 05/29/17 19:53 Nitroglycerin (Nitrostat) 0.4 mg PRN Q5MIN PRN SL CHEST PAIN 05/29/17 19:45 05/29/17 20:07 Morphine Sulfate 2 mg PRN Q2HR PRN IV PAIN 05/29/17 20:00 05/30/17 19:59 05/30/17 08:24 Atorvastatin Calcium (Lipitor) 20 mg QHS PO 05/29/17 23:00 05/29/17 22:49 Bupropion HCl (Wellbutrin Sr) 150 mg Q12HR PO 05/29/17 23:00 05/30/17 08:25 Buspirone HCl (Buspar) 10 mg BID PO 05/29/17 23:00 05/30/17 08:25 Gabapentin (Neurontin) 100 mg TID PO 05/29/17 23:00 05/30/17 08:25 Hydroxychloroquine Sulfate (Plaquenil) 400 mg BID PO 05/29/17 23:00 05/30/17 08:25 Trazodone HCl (Desyrel) 100 mg QHS PO 05/29/17 23:00 05/29/17 22:49 ALLERGIES ALLERGIES: Coded Allergies: No Known Drug Allergies (Unverified , 01/15/17) ROS Review of System 14 point ROS evaluated with pertinent positives noted per HPI PHYSICAL EXAM General: Alert, Oriented X3, Cooperative, No acute distress HEENT: Atraumatic, Mucous membr. moist/pink Lungs: Clear to auscultation, Normal air movement Heart: Regular rate (SR), Normal S1, Normal S2, Other (2/6 systolic murmur to LLS border) Abdomen: Soft, No tenderness Extremities: No cyanosis, No edema Skin: No breakdown, No significant lesion Neuro: Normal speech, Sensation intact Psych/Mental Status: Mood NL MUSCULOSKELETAL: Osteoarthritic changes both hands VITALS VITALS Vital Signs Date Time Temp Pulse Resp B/P (MAP) Pulse Ox O2 Delivery O2 Flow Rate FiO2 05/30/17 09:08 Room Air 05/30/17 08:24 98 05/30/17 07:00 97.7 73 20 133/64 (87) 97.7 LABS Lab: Laboratory Tests Test 05/29/17 18:40 White Blood Count 4.2 x10^3/uL (4.0-11.0) Red Blood Count 4.20 x10^6/uL (3.50-5.40) Hemoglobin 11.8 g/dL (12.0-15.5) Hematocrit 36.5 % (36.0-47.0) Mean Corpuscular Volume 87 fL (79-100) Mean Corpuscular Hemoglobin 28 pg (25-35) Mean Corpuscular Hemoglobin Concent 32 g/dL (31-37) Red Cell Distribution Width 15.9 % (11.5-14.5) Platelet Count 220 x10^3/uL (140-400) Neutrophils (%) (Auto) 36 % (31-73) Lymphocytes (%) (Auto) 44 % (24-48) Monocytes (%) (Auto) 13 % (0-9) Eosinophils (%) (Auto) 6 % (0-3) Basophils (%) (Auto) 1 % (0-3) Neutrophils # (Auto) 1.5 x10^3uL (1.8-7.7) Lymphocytes # (Auto) 1.9 x10^3/uL (1.0-4.8) Monocytes # (Auto) 0.5 x10^3/uL (0.0-1.1) Eosinophils # (Auto) 0.2 x10^3/uL (0.0-0.7) Basophils # (Auto) 0.0 x10^3/uL (0.0-0.2) Sodium Level 145 mmol/L (136-145) Potassium Level 4.1 mmol/L (3.5-5.1) Chloride Level 107 mmol/L (98-107) Carbon Dioxide Level 30 mmol/L (21-32) Anion Gap 8 (6-14) Blood Urea Nitrogen 19 mg/dL (7-20) Creatinine 0.9 mg/dL (0.6-1.0) Estimated GFR (Cockcroft-Gault) 77.0 Glucose Level 75 mg/dL (70-99) Calcium Level 9.0 mg/dL (8.5-10.1) Total Bilirubin 0.4 mg/dL (0.2-1.0) Direct Bilirubin 0.1 mg/dL (0.0-0.2) Aspartate Amino Transf (AST/SGOT) 24 U/L (15-37) Alanine Aminotransferase (ALT/SGPT) 34 U/L (14-59) Alkaline Phosphatase 100 U/L (46-116) Troponin I Quantitative < 0.017 ng/mL (0.000-0.055) YD-Lum-A-Type Natriuretic Peptide 40 pg/mL (0-124) Total Protein 6.9 g/dL (6.4-8.2) Albumin 3.8 g/dL (3.4-5.0) Lipase 190 U/L (73-393) ECHOCARDIOGRAM ECHOCARDIOGRAM <Conclusion> Left ventricle systolic function is normal. The Ejection Fraction is estimated at 60-65%. There is normal LV segmental wall motion. Doppler and Color Flow revealed trace to mild tricuspid regurgitation. The pulmonary artery systolic pressure is estimated at 30-40 mmHg. There is no evidence of significant pericardial effusion. DATE: 02/18/14 1547 STRESS TEST STRESS TEST Conclusion 1. Regadenoson cardioisotope stress test did not show any evidence of ischemia or infarct 2. Normal left ventricular systolic function with ejection fraction calculated at 72% 3. Low annual risk for cardiac events DATE: 02/18/14 1513 HEART CATH HEART CATH CORONARY ANGIOGRAPHY: LM is a large caliber vessel with normal angiographic appearance. LAD is a large caliber vessel with normal angiographic appearance. D1 is a moderate caliber vessel with normal angiographic apeparance. LCx is a moderate caliber non-dominant vessel with normal angiographic appearance. OM1 is a moderate caliber vessel with normal angiographic appearance. RCA is a large caliber dominant vessel with normal angiographic appearance. RPDA and RPL are small caliber vessels with normal angiographic appearance. Conclusion 1. No significant obstructive coronary disease. 2. Normal LV function. EF 55% 3. Normal left sided filling pressures. Recommendations Aggressive Medical Therapy Medications Administered ADDISON Inhibitor (any) Aspirin (any) Beta Stormy (any) Statin (any) DATE: 08/02/16 0936 ASSESSMENT/PLAN ASSESSMENT/PLAN 1. Chest pain: Doubt ACS. Recent 2016 [facility] with normal coronaries. Will need to rule out for PE as well as issues with her esophagus 2. S/P open heller myotomy: sensation of pressure to her epigastric/sternal juntion taking 20 minutes before relief. 3. Hx of SLE/PE/DVT 4. HTN: controlled 5. Anxiety Recommendations 1. TTE and will note RV and PAP. No further cardiac testing otherwise. Will check DDIMER 2. Defer pulmonary and esophageal w/u to PCP 3/ Continue secondary prevention Problems: EULA MA MD 05/30/17 1630: CARDIAC CONSULT ALLERGIES ALLERGIES: Coded Allergies: No Known Drug Allergies (Unverified , 01/15/17) ASSESSMENT/PLAN ASSESSMENT/PLAN Patient seen and examined. 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 Chest pain with atypical features and most probably GI etiology. Myocardial infarction ruled out. 2-D echo showed normal LV function without any wall motion abnormalities. Recent cardiac catheterization showed normal coronary arteries. No further cardiac workup is indicated at this time. Thank you for your consultation. Problems: ROSEY MILLER APRN May 30, 2017 09:40 EULA MA MD May 30, 2017 16:30
[2017-05-30 10:40] LABS: CHOLESTEROL/HDL RATIO 2.2
[2017-05-30 11:00] VITALS: BP 122/70
[2017-05-30] MEDS ORDERED: traMADol 50 MG TABLET PO PRN (11:00)
--- NOTE | 2017-05-30 11:58 | CARD ---
APPROVED REPORT EXAM: Two-dimensional and M-mode echocardiogram with Doppler and color Doppler. Other Information Quality : Average Rhythm : NSR INDICATION Chest Pain 2D DIMENSIONS RVDd2.7 (2.9-3.5cm)Left Atrium(2D)3.1 (1.6-4.0cm) IVSd1.1 (0.7-1.1cm)Aortic Root(2D)2.4 (2.0-3.7cm) LVDd4.7 (3.9-5.9cm)LVOT Diameter2.0 (1.8-2.4cm) PWd1.1 (0.7-1.1cm)LVDs2.8 (2.5-4.0cm) FS (%) 31.3 %SV73.9 ml LVEF(%)62.1 (>50%) Aortic Valve AoV Peak Elkin.150.7cm/sAoV VTI32.2cm AO Peak GR.9.1mmHgLVOT Peak Elkin.102.9cm/s LVOT VTI 22.66cmAO Mean GR.5mmHg LEV (VMAX)2.55oq6JRA (VTI)2.12cm2 Mitral Valve MV E Ksxwfwhh90.5cm/sMV DECEL ATAI429yy MV A Duwystof98.7cm/sMV PFU85xp E/A Ratio1.2MV A Yffukyha186kc MVA (PHT)5.26cm2 TDI E/Lateral E'7.9E/Medial E'6.7 Pulmonary Valve PV Peak Dyudushb713.0cm/sPV Peak Grad.5mmHg RVOT VTI24.1cm Tricuspid Valve TR P. Ojouxwqo181je/sRAP YRMAUVNJ3ovCh TR Peak Gr.45hbKzABIM38vnPd Pulmonary Vein S1 Khuegunt23.8cm/sD2 Hocfbzkf91.0cm/s LEFT VENTRICLE The left ventricle is normal size. There is normal left ventricular wall thickness. Left ventricle sy stolic function is normal. The Ejection Fraction is 60-65%. There is normal LV segmental wall motion. The left ventricular diastolic function and filling is normal for age. There is no ventricular septa l defect visualized. RIGHT VENTRICLE The right ventricle is normal size. The right ventricular systolic function is normal. ATRIA The left atrium size is normal. The right atrium size is normal. The interatrial septum is intact wit h no evidence for an atrial septal defect or patent foramen ovale as noted on 2-D or Doppler imaging. AORTIC VALVE The aortic valve is normal in structure and function. The aortic valve is trileaflet. Doppler and Col or Flow revealed no significant aortic regurgitation. There is no significant aortic valvular stenosi s. MITRAL VALVE The mitral valve is normal in structure and function. There is no mitral valve stenosis. Doppler and Color Flow revealed no mitral valve regurgitation noted. TRICUSPID VALVE The tricuspid valve is normal in structure and function. Doppler and Color Flow revealed trace to mil d tricuspid regurgitation. The PA pressure was estimated at 27 mmHg. There is no tricuspid valve sten osis. PULMONIC VALVE The pulmonic valve is not well visualized. Doppler and Color Flow revealed no pulmonic valvular regur gitation. There is no pulmonic valvular stenosis. GREAT VESSELS The aortic root is normal in size. Normal pulmonary venous flow (Doppler). The IVC was not visualized . PERICARDIAL EFFUSION There is no evidence of significant pericardial effusion. Critical Notification Critical Value: No <Conclusion> Left ventricle systolic function is normal. The Ejection Fraction is 60-65%. There is normal LV segmental wall motion.
[2017-05-30] MEDS ORDERED: ENOXAPARIN 40 MG/0.4 ML SYRINGE. SQ SCH (12:00)
[2017-05-30] MEDS ORDERED: TIZANIDINE HCL PO PRN (12:30)
[2017-05-30] MEDS ORDERED: HYDROcodon/APAP 7.5/325MG ORAL 15 ML SOLUTION PO PRN (12:30)
[2017-05-30] MEDS ORDERED: POLYETHYLENE GLYCOL 3350 17 GM PACKET. PO PRN (13:00)
[2017-05-30] MEDS: PANTOPRAZOLE 40 MG TABLET.DR. PO SCH (13:01)
--- NOTE | 2017-05-30 14:09 | HP ---
ADMIT DATE: CHIEF COMPLAINT: Chest pain. HISTORY OF PRESENT ILLNESS AND HOSPITAL COURSE: This patient is a 61-year-old -[place] female with long history of systemic lupus erythematosus, hypertension and chronic pain, who came to the Emergency Room complaining of a 3-day history of substernal chest pain. She says it started and lasted no significant which for about 20 minutes, but continued mildly for up to 3 days, worsening on the day of admission, she states the pain was substernal with radiation to her back and shoulders. She did become shortness of breath with exertion and walking. She does have episodes of diaphoresis, but not necessary associated with this particular pain. She states the pain is worse when she eats. The patient came to the Emergency Room and had a negative cardiac workup, but due to multiple risk factors, she was admitted for cardiac pain and to rule out cardiac disease. The patient was known to have a negative cardiac catheterization approximately 1 year ago. The patient also being evaluated for noncardiac pain attributed to known history of gallbladder stones as well as history of possible esophageal reflux and spasm. PAST MEDICAL HISTORY: Significant for: 1. Systemic lupus. 2. Hypertension. 3. High cholesterol. 4. Generalized anxiety disorder. 5. Reflux disease. 6. Fibromyalgia. 7. Irritable bowel syndrome. 8. Osteoarthritis. 9. Major depression. 10. PTSD. 11. History of pulmonary embolus. 12. History of gallstones. PAST SURGICAL HISTORY: Significant for 1. Total abdominal hysterectomy and bilateral oophorectomy. 2. Gastric bypass in 2010. 3. Laparoscopic lysis of adhesions . 4. Breast reduction. 5. Carpal tunnel syndrome. 6. Dilatation of esophageal obstruction x 2. 7. Heller myotomy. FAMILY HISTORY: Significant for mother who of colon cancer, sister who with ovarian cancer and daughter with SLE. SOCIAL HISTORY: The patient has never smoked. She does not use alcohol. The patient lives with her spouse and children. The patient is on disability for PTSD. MEDICATIONS: On admission are amlodipine 5 mg daily, atorvastatin 20 mg daily. Prilosec 20 mg b.i.d., hydroxychloroquine 200 mg b.i.d., Wellbutrin-XL 150 mg daily, trazodone on 100 mg 1-2 tablets at bedtime. The patient was recently started on Actigall 300 mg 3 times a day for ____ itching. PHYSICAL EXAMINATION: GENERAL: This is a well-nourished, well-developed -[place] female, in no apparent distress on my exam, she is alert and oriented x 3. HEENT: Benign. NECK: Supple, without JVD or bruit. CARDIAC: Regular rate and rhythm. LUNGS: Clear. ABDOMEN: Tender to the palpation without rebound or guarding. She is tender in the left lower quadrant as well as in the right upper quadrant. EXTREMITIES: 2+ pulses without edema. NEUROLOGIC: Intact. ASSESSMENT: 1. Atypical chest pain. 2. Abdominal pain consistent with gallbladder disease. 3. Please see past medical history. PLAN: 1. To proceed with cardiology evaluation and rule out protocol. 2. Consult GI Medicine. 3. Proceed with abdominal scan and consider surgical evaluation for cholecystectomy, if gallstones are present or evidence of cholecystitis is visualized. DYAN SHANKS MD DR: KIKI/yevgeniy JOB#: [id number] / [id number]
[2017-05-30] MEDS: FOLIC ACID 1 MG TABLET. PO SCH (14:46)
[2017-05-30] MEDS: LISINOPRIL 10 MG TABLET PO SCH (14:47)
[2017-05-30 15:00] VITALS: BP 135/69
--- NOTE | 2017-05-30 17:14 | RAD ---
Abdominal ultrasound, 05/30/2017: History: Abdominal pain The gallbladder is within normal limits in size. There is no sonographic evidence of cholelithiasis. The gallbladder chin are not thickened. No bile duct dilatation is seen. The visualized portions of the liver are unremarkable. The pancreas was largely obscured by overlying bowel. The upper abdominal aorta and inferior vena cava are unremarkable. Inferiorly those structures were obscured by bowel. The spleen is of normal size. The left kidney shows no abnormality. The visualized portions of the right kidney are unremarkable, although its lower pole was obscured by overlying bowel. No free fluid is evident in the abdomen. IMPRESSION: No acute abdominal abnormality is detected.
--- NOTE | 2017-05-30 17:34 | PDOC2 ---
CONSULT Date of Consult Date of Consult DATE: 05/30/17 TIME: 17:33 Reason for Consult Reason for Consult: Dysphagia/ ACP S/p Heller myotomy Past Medical History Cardiovascular: HTN, Hyperlipidemia Pulmonary: Pulmonary embolus (with DVT), Other (PATSY) GI: GERD, Irritable bowel disease, Other (achalasia) Heme/Onc: Other (SLE) Hepatobiliary: Cholelithiasis Psych: Anxiety, Depression, Other (PTSD) Musculoskeletal: Osteoarthritis Rheumatologic: Fibromyalgia Family History Family History: Cancer, Other (SLE siter) Social History No ALCOHOL: occassional Drugs: None Lives: with Family Current Problem List Problem List Problems Medical Problems: (1) Chest pain Status: Acute Current Medications Current Medications Current Medications Aspirin (Children'S Aspirin) 324 mg 1X ONCE PO Last administered on 05/29/17 19:53; Start 05/29/17 at 19:45; Stop 05/29/17 at 19:46; Status DC Nitroglycerin (Nitrostat) 0.4 mg PRN Q5MIN PRN SL CHEST PAIN Last administered on 05/29/17 20:07; Start 05/29/17 at 19:45 Ondansetron HCl (Zofran) 4 mg PRN Q8HRS PRN IV NAUSEA/VOMITING; Start 05/29/17 at 20:00; Stop 05/30/17 at 19:59 Morphine Sulfate 2 mg PRN Q2HR PRN IV PAIN Last administered on 05/30/17 14:52 ; Start 05/29/17 at 20:00; Stop 05/30/17 at 19:59 Atorvastatin Calcium (Lipitor) 20 mg QHS PO Last administered on 05/29/17 22:49 ; Start 05/29/17 at 23:00 Bupropion HCl (Wellbutrin Sr) 150 mg Q12HR PO Last administered on 05/30/17 08: 25; Start 05/29/17 at 23:00 Buspirone HCl (Buspar) 10 mg BID PO Last administered on 05/30/17 08:25; Start 05/29/17 at 23:00; Stop 05/30/17 at 12:44; Status DC Gabapentin (Neurontin) 100 mg TID PO Last administered on 05/30/17 08:25; Start 05/29/17 at 23:00; Stop 05/30/17 at 12:45; Status DC Hydroxychloroquine Sulfate (Plaquenil) 400 mg BID PO Last administered on 08:25; Start 05/29/17 at 23:00; Stop 05/30/17 at 12:45; Status DC Trazodone HCl (Desyrel) 100 mg QHS PO Last administered on 05/29/17 22:49; Start 05/29/17 at 23:00 Tramadol HCl (Ultram) 50 mg PRN Q6HRS PRN PO PAIN Last administered on 11:43; Start 05/30/17 at 11:00 Enoxaparin Sodium (Lovenox 40mg Syringe) 40 mg Q24H SQ Last administered on 05/30 11:44; Start 05/30/17 at 12:00 Folic Acid (Folic Acid) 1 mg DAILY PO ; Start 05/30/17 at 15:00 Acetaminophen/ Hydrocodone Bitart (Lortab 7.5-325/ 15ml Oral Solution) 15 ml PRN Q6HRS PRN PO PAIN; Start 05/30/17 at 12:30; Stop 05/30/17 at 12:45; Status DC Lisinopril (Prinivil) 10 mg DAILY PO ; Start 05/30/17 at 15:00 Metoprolol Succinate (Toprol Xl) 25 mg BID PO ; Start 05/30/17 at 21:00; Stop 05/30/17 at 21:00; Status DC Polyethylene Glycol (miraLAX PACKET) 17 gm PRN DAILY PRN PO CONSTIPATION; Start 05/30/17 at 13:00 Non-Formulary Medication 10 mg DAILY PO ; Start 05/31/17 at 09:00; Stop 05/31/17 at 09:00; Status DC Non-Formulary Medication 1 tab BID PO ; Start 05/30/17 at 21:00; Stop 05/30/17 at 21:00; Status DC Non-Formulary Medication 500 mg HS PO ; Start 05/30/17 at 21:00; Stop 05/30/17 at 21:00; Status DC Non-Formulary Medication 1 cap PRN QHS PRN PO MUSCLE SPASMS; Start 05/30/17 at 12:30; Stop 05/30/17 at 12:45; Status DC Non-Formulary Medication 1 tab DAILY PO ; Start 05/31/17 at 09:00; Stop 05/31/17 at 09:00; Status DC Ursodiol (Actigall) 300 mg BID PO ; Start 05/30/17 at 21:00 Hydroxychloroquine Sulfate (Plaquenil) 200 mg BID PO ; Start 05/30/17 at 21:00 Pantoprazole Sodium (Protonix) 40 mg DAILYAC PO ; Start 05/30/17 at 13:30 Active Scripts Active Hydrocodone-Apap 7.5-325/15 Soln (Hydrocodone Bit/Acetaminophen) 15 Ml Solution 15 Ml PO PRN Q6HRS PRN Reported Buspirone Hcl 10 Mg Tablet 1 Tab PO BID Dose given this am-Take again tonight Trazodone Hcl 100 Mg Tablet 1 Tab PO QHS 1-2 tablet QHS Dicyclomine Hcl 20 Mg Tablet 1 Tab PO BID Not given here-Take again per normal schedule Zanaflex (Tizanidine Hcl) 4 Mg Capsule 1 Cap PO PRN QHS PRN Not given here-take again when needed for muscle spasms Diclofenac Sodium 75 Mg Tablet.dr 1 Tab PO PRN BID PRN Not given here-take again as needed Glycolax (Polyethylene Glycol 3350) 119 Gm Powder 17 Gm PO DAILY PRN Not given here-take again when needed for constipation Bupropion Hcl Sr (Bupropion Hcl) 150 Mg Tablet.er 1 Tab PO Q12HR Dose given this am-Take again tonight NITROGLYCERIN SubLingual (Nitroglycerin) 0.4 Mg Tab.subl 0.4 Mg SL PRN Q5MIN PRN Not given here-take again when needed for chest pain Gabapentin 100 Mg Capsule 100 Mg PO TID Not given here-take again per normal scheduled Abilify (Aripiprazole) 10 Mg Tablet 10 Mg PO DAILY Dose given this am-Take again tomorrow morning Alendronate Sodium 70 Mg Tablet 1 Tab PO WEEKLY Not given here-Take again per normal schedul Toprol Xl (Metoprolol Succinate) 25 Mg Tab.er.24h 1 Tab PO BID dose given this morning-Take again tonight Viibryd (Vilazodone Hydrochloride) 40 Mg Tablet 1 Tab PO DAILY Not given here-take again per normal scheduled Methotrexate (Methotrexate Sodium) 2.5 Mg Tablet 5 Mg PO WEEKLY Not given here-take again per normal scheduled Plaquenil (Hydroxychloroquine Sulfate) 200 Mg Tablet 400 Mg PO BID Not given here-take again per normal scheduled Lisinopril 10 Mg Tablet 1 Tab PO DAILY dose given this morning-Take again tomorrow morning Folic Acid 1 Mg Tablet 1 Tab PO DAILY Not given here-take again per normal scheduled Niacin 500 Mg Tablet.er 500 Mg PO HS Not given here-take again per normal scheduled Atorvastatin Calcium 20 Mg Tablet 20 Mg PO QHS Not given here-take tonight Allergies Allergies: Coded Allergies: No Known Drug Allergies (Unverified , 01/15/17) Vitals VITALS Vital Signs Date Time Temp Pulse Resp B/P (MAP) Pulse Ox O2 Delivery O2 Flow Rate FiO2 05/30/17 15:30 96 Room Air 05/30/17 15:00 97.9 66 18 135/69 (91) 97.9 Labs Labs Laboratory Tests Test 05/29/17 18:40 05/30/17 10:12 05/30/17 10:27 White Blood Count 4.2 x10^3/uL (4.0-11.0) Red Blood Count 4.20 x10^6/uL (3.50-5.40) Hemoglobin 11.8 g/dL (12.0-15.5) Hematocrit 36.5 % (36.0-47.0) Mean Corpuscular Volume 87 fL (79-100) Mean Corpuscular Hemoglobin 28 pg (25-35) Mean Corpuscular Hemoglobin Concent 32 g/dL (31-37) Red Cell Distribution Width 15.9 % (11.5-14.5) Platelet Count 220 x10^3/uL (140-400) Neutrophils (%) (Auto) 36 % (31-73) Lymphocytes (%) (Auto) 44 % (24-48) Monocytes (%) (Auto) 13 % (0-9) Eosinophils (%) (Auto) 6 % (0-3) Basophils (%) (Auto) 1 % (0-3) Neutrophils # (Auto) 1.5 x10^3uL (1.8-7.7) Lymphocytes # (Auto) 1.9 x10^3/uL (1.0-4.8) Monocytes # (Auto) 0.5 x10^3/uL (0.0-1.1) Eosinophils # (Auto) 0.2 x10^3/uL (0.0-0.7) Basophils # (Auto) 0.0 x10^3/uL (0.0-0.2) Sodium Level 145 mmol/L (136-145) Potassium Level 4.1 mmol/L (3.5-5.1) Chloride Level 107 mmol/L (98-107) Carbon Dioxide Level 30 mmol/L (21-32) Anion Gap 8 (6-14) Blood Urea Nitrogen 19 mg/dL (7-20) Creatinine 0.9 mg/dL (0.6-1.0) Estimated GFR (Cockcroft-Gault) 77.0 Glucose Level 75 mg/dL (70-99) Calcium Level 9.0 mg/dL (8.5-10.1) Total Bilirubin 0.4 mg/dL (0.2-1.0) Direct Bilirubin 0.1 mg/dL (0.0-0.2) Aspartate Amino Transf (AST/SGOT) 24 U/L (15-37) Alanine Aminotransferase (ALT/SGPT) 34 U/L (14-59) Alkaline Phosphatase 100 U/L (46-116) Troponin I Quantitative < 0.017 ng/mL (0.000-0.055) < 0.017 ng/mL (0.000-0.055) DX-Rom-F-Type Natriuretic Peptide 40 pg/mL (0-124) Total Protein 6.9 g/dL (6.4-8.2) Albumin 3.8 g/dL (3.4-5.0) Lipase 190 U/L (73-393) Triglycerides Level 48 mg/dL (0-150) Cholesterol Level 179 mg/dL (0-200) LDL Cholesterol, Calculated 88 mg/dL (0-100) VLDL Cholesterol, Calculated 10 mg/dL (0-40) Non-HDL Cholesterol Calculated 98 mg/dL (0-129) HDL Cholesterol 81 mg/dL (40-60) Cholesterol/HDL Ratio 2.2 D-Dimer (Claudia) 0.38 ug/mlFEU (0.00-0.50) Laboratory Tests Test 05/29/17 18:40 05/30/17 10:12 05/30/17 10:27 White Blood Count 4.2 x10^3/uL (4.0-11.0) Red Blood Count 4.20 x10^6/uL (3.50-5.40) Hemoglobin 11.8 g/dL (12.0-15.5) Hematocrit 36.5 % (36.0-47.0) Mean Corpuscular Volume 87 fL (79-100) Mean Corpuscular Hemoglobin 28 pg (25-35) Mean Corpuscular Hemoglobin Concent 32 g/dL (31-37) Red Cell Distribution Width 15.9 % (11.5-14.5) Platelet Count 220 x10^3/uL (140-400) Neutrophils (%) (Auto) 36 % (31-73) Lymphocytes (%) (Auto) 44 % (24-48) Monocytes (%) (Auto) 13 % (0-9) Eosinophils (%) (Auto) 6 % (0-3) Basophils (%) (Auto) 1 % (0-3) Neutrophils # (Auto) 1.5 x10^3uL (1.8-7.7) Lymphocytes # (Auto) 1.9 x10^3/uL (1.0-4.8) Monocytes # (Auto) 0.5 x10^3/uL (0.0-1.1) Eosinophils # (Auto) 0.2 x10^3/uL (0.0-0.7) Basophils # (Auto) 0.0 x10^3/uL (0.0-0.2) Sodium Level 145 mmol/L (136-145) Potassium Level 4.1 mmol/L (3.5-5.1) Chloride Level 107 mmol/L (98-107) Carbon Dioxide Level 30 mmol/L (21-32) Anion Gap 8 (6-14) Blood Urea Nitrogen 19 mg/dL (7-20) Creatinine 0.9 mg/dL (0.6-1.0) Estimated GFR (Cockcroft-Gault) 77.0 Glucose Level 75 mg/dL (70-99) Calcium Level 9.0 mg/dL (8.5-10.1) Total Bilirubin 0.4 mg/dL (0.2-1.0) Direct Bilirubin 0.1 mg/dL (0.0-0.2) Aspartate Amino Transf (AST/SGOT) 24 U/L (15-37) Alanine Aminotransferase (ALT/SGPT) 34 U/L (14-59) Alkaline Phosphatase 100 U/L (46-116) Troponin I Quantitative < 0.017 ng/mL (0.000-0.055) < 0.017 ng/mL (0.000-0.055) NB-Xor-V-Type Natriuretic Peptide 40 pg/mL (0-124) Total Protein 6.9 g/dL (6.4-8.2) Albumin 3.8 g/dL (3.4-5.0) Lipase 190 U/L (73-393) Triglycerides Level 48 mg/dL (0-150) Cholesterol Level 179 mg/dL (0-200) LDL Cholesterol, Calculated 88 mg/dL (0-100) VLDL Cholesterol, Calculated 10 mg/dL (0-40) Non-HDL Cholesterol Calculated 98 mg/dL (0-129) HDL Cholesterol 81 mg/dL (40-60) Cholesterol/HDL Ratio 2.2 D-Dimer (Claudia) 0.38 ug/mlFEU (0.00-0.50) Assessment/Plan Assessment/Plan Dysphagia- with atypical chest pain/s/p heller myotomy Plan esophagram to assess anatomy await oh torrez Full note dictated FINA HANSON MD May 30, 2017 17:34
--- NOTE | 2017-05-30 18:28 | CONS ---
DATE OF CONSULTATION: 05/29/2017 REASON FOR CONSULTATION: Atypical chest pain, dysphagia, status post Heller myotomy. HISTORY OF PRESENT ILLNESS: A 61-year-old -Citizen Of [place] female whose past medical history is significant for hypertension, hyperlipidemia, anxiety, reflux, osteoarthrosis, history of pulmonary emboli, is admitted to [facility] with atypical chest pain. The patient states she has had shortness of breath. She had increased difficulties with swallowing since her surgery with solids getting stuck, but not liquids. With the continued symptoms in a cardiac workup, GI consultation is requested. PAST MEDICAL HISTORY: History of lupus, hypertension, hyperlipidemia, anxiety, reflux, fibromyalgia. ALLERGIES: None. MEDICATIONS: At the present time include Plaquenil, Actigall, Prinivil, folic acid, Protonix, Ultram, Desyrel, Wellbutrin, Lipitor, Zofran, and Nitrostat. SOCIAL HISTORY: She does not drink or smoke. FAMILY HISTORY: Noncontributory. Significant for lupus and colon cancer. REVIEW OF SYSTEMS: As per records. PAST SURGICAL HISTORY: Status post TAHBSO, gastric bypass, lysis of adhesions, breast reduction, carpal tunnel syndrome, Heller myotomy. PHYSICAL EXAMINATION: GENERAL: Reveals a well-nourished, well-developed -Citizen Of [place] female, who is no acute distress. VITAL SIGNS: Temperature 97.9, pulse 86, respirations 18, blood pressure is 135/69. HEENT: Reveals a normocephalic, atraumatic head. Pupils and extraocular muscles not tested. Sclerae anicteric. NECK: Supple. LUNGS: Clear. CARDIOVASCULAR: Reveals an S1, S2 without S3, S4 or appreciable murmur. ABDOMEN: Reveals a soft abdomen, normal bowel sounds, without appreciable hepatosplenomegaly. Epigastric tenderness to deep palpation. EXTREMITIES: Reveals no cyanosis, clubbing, or edema. LABORATORY DATA: Hemoglobin is 11.8, hematocrit 36.5, white count 4.2, platelet count is 220,000. Sodium 145, potassium 4.1, chloride 107, bicarbonate 30, BUN 19, creatinine 0.9, glucose 75, calcium 9.1, total bilirubin 0.4, direct bilirubin 0.1, AST of 24, ALT of 34, alkaline phosphatase of 100. Ultrasound is unrevealing for stones. Esophogram is pending. IMPRESSION: Atypical chest pain status post Heller myotomy for achalasia with dysphagia, most likely secondary to esophageal stricture complete myotomy. Therefore, recommend an esophagram as well as HIDA scan with ejection fraction. If a chronic cholecystitis is encountered, laparoscopic cholecystectomy may be pursued. If stricture is noted on esophagram, an esophagogastroduodenoscopy with dilatation may be warranted. I thank Dr. Daugherty for allowing us to consult and participate in patient's care. FINA HANSON MD DR: STEVEN/yevgeniy JOB#: [id number] / [id number]
[2017-05-30 19:00] VITALS: BP 117/66
[2017-05-30] MEDS: HYDROcodon/APAP 7.5/325MG ORAL 15 ML SOLUTION PO PRN (20:24)
[2017-05-30] MEDS: URSODIOL 300 MG CAPSULE. PO SCH (20:25)
[2017-05-30] MEDS: ATORVASTATIN CALCIUM 20 MG TABLET PO SCH (20:25)
[2017-05-30] MEDS ORDERED: NON FORMULARY ITEM (Dicyclomine Hcl 1 TAB) PO SCH (21:00)
[2017-05-30] MEDS ORDERED: NIACIN 500 MG PO SCH (21:00)
[2017-05-30] MEDS ORDERED: METOPROLOL SUCC 24HR ER 25 MG TAB.ER.24H. PO SCH (21:00)
[2017-05-30] MEDS ORDERED: MORPHINE SULFATE 2 MG/ML DISP.SYRIN. IV PRN (22:00)
[2017-05-30] MEDS: traZODone 100 MG TABLET. PO SCH (22:59)
[2017-05-30 23:00] VITALS: BP 132/78
[2017-05-31 03:16] VITALS: BP 111/69
[2017-05-31 07:00] VITALS: BP 109/76
[2017-05-31] MEDS ORDERED: BARIUM SULFATE 340 GM SUSPENSION. PO ONE (07:30)
[2017-05-31] MEDS ORDERED: BARIUM SULFATE 60% 355 ML SUSP PO ONE (07:30)
[2017-05-31] MEDS ORDERED: SIMETHICONE/SOD BICARB/CITRIC ACID PACKET. PO ONE (07:45)
[2017-05-31] MEDS ORDERED: ARIPIPRAZOLE 10 MG PO SCH (09:00)
[2017-05-31] MEDS ORDERED: NON FORMULARY ITEM (Vilazodone Hydrochloride (Viibryd) 1 TAB) PO SCH (09:00)
[2017-05-31 11:00] VITALS: BP 124/71
[2017-05-31] MEDS ORDERED: SINCALIDE 1.45 MCG in IV NORMAL SALINE 50ML 30 ML IV ONE (12:15)
[2017-05-31] MEDS ORDERED: URSO300C13 PO (13:05)
[2017-05-31] MEDS ORDERED: ATOR20TA58 PO (13:05)
[2017-05-31] MEDS ORDERED: PANT40TA5 PO (13:05)
[2017-05-31] MEDS ORDERED: HYDR200T5 PO (13:05)
[2017-05-31] MEDS ORDERED: TRAZ100T12 PO (13:05)
[2017-05-31] MEDS ORDERED: BUPR150T11 PO (13:05)
[2017-05-31] MEDS ORDERED: AMLO5TAB4 PO (13:05)
--- NOTE | 2017-05-31 13:33 | RAD ---
Radionuclide hepatobiliary scan with gallbladder ejection fraction, 05/31/2017: History: Abdominal pain Following IV injection of 5.5 mCi of technetium 99m Choletec there was prompt uptake of the radionuclide from the blood stream by the liver. Activity is present in the gallbladder, bile ducts and small bowel at 10 minutes. Additional imaging of the gallbladder was performed following IV injection of 1.4 mcg of cholecystokinin. There is vigorous gallbladder emptying with gallbladder ejection fraction calculated at 93%. IMPRESSION: 1. Normal radionuclide hepatobiliary scan. 2. The gallbladder ejection fraction is 93%.
[2017-05-31] MEDS: PANTOPRAZOLE 40 MG TABLET.DR. PO SCH (13:54)
[2017-05-31] MEDS: HYDROcodon/APAP 7.5/325MG ORAL 15 ML SOLUTION PO PRN (13:57)
[2017-05-31 15:05] VITALS: BP 112/57
[2017-05-31 15:26] VITALS: BP 124/71
[2017-05-31] MEDS: buPROPion SR 150 MG TABLET.SA PO SCH (15:26)
[2017-05-31] MEDS: LISINOPRIL 10 MG TABLET PO SCH (15:26)
[2017-05-31] MEDS: URSODIOL 300 MG CAPSULE. PO SCH (15:26)
[2017-05-31] MEDS: HYDROXYCHLOROQUINE 200 MG TABLET PO SCH (15:26)
[2017-05-31] MEDS: FOLIC ACID 1 MG TABLET. PO SCH (15:26)
--- NOTE | 2017-05-31 16:58 | RAD ---
Fluoroscopic esophagram 05/31/2017 Clinical indication: Dysphagia status post Heller myotomy. Comparison: Esophagram January 18, 2017. Findings/technique: Total fluoroscopy time: 1.[address] machine runner radiograph is grossly unremarkable nito from lower ACDF hardware. Patient self-administered positive oral barium contrast with normal transit through the esophagus and no evidence of stricture, focal filling defect, hiatal hernia or gastroesophageal reflux. Postsurgical changes of a gastric bypass. Impression: No evidence of stricture, hiatal hernia or reflux.
--- NOTE | 2017-05-31 19:13 | DS ---
DATE OF DISCHARGE: 05/31/2017 CHIEF COMPLAINT: Chest and abdominal pain. HISTORY OF PRESENT ILLNESS AND HOSPITAL COURSE: This patient is a 61-year-old -[place] female with a history of systemic lupus and hypertension, who came to the Emergency Room complaining of chest pain and subsequently it was discovered that pain was also coming from her abdomen and right upper quadrant. She was admitted for rule out protocol due to risk factors for heart disease but subsequently was evaluated by Cardiology and found to have a negative cath less than a year ago and negative blood test and EKG for heart disease. Therefore further cardiac workup was deferred. GI workup ensued. The patient had a gallbladder sonogram as well as esophageal barium swallow and hepatobiliary scan, all of which returned negative. The patient's pain had improved and the patient was discharged to home on previous home medications and told to follow up with GI medicine for continued abdominal pains. HOME MEDICATIONS: Will be as follows: Norvasc 5 mg daily, atorvastatin 20 mg daily, Wellbutrin XL 150 mg daily, 200 mg b.i.d., Protonix 40 mg daily, trazodone 100 mg at bedtime, Actigall 300 mg b.i.d., MiraLax 17 grams in water daily. She will follow up in the office in 1 week for continued evaluation of medications and further evaluation of abdominal and chest pains. DYAN SHANKS MD DR: KIKI/yevgeniy JOB#: [id number] / [id number]
== END 2017-05-31 16:02 | disposition home or self-care (01) ==
LOC: ER 18:26 → ED HOLD 19:53 → ER 20:15 → 4 NORTH 20:27
PROVIDERS: ADMIT Family Medicine; ATTEND Family Medicine
DX: R07.89 Other chest pain (principal); K82.9 Disease of gallbladder, unspecified; M32.9 Systemic lupus erythematosus, unspecified; I10 Essential (primary) hypertension; E78.00 Pure hypercholesterolemia, unspecified; F41.1 Generalized anxiety disorder; K21.9 Gastro-esophageal reflux disease without esophagitis; M79.7 Fibromyalgia; K58.9 Irritable bowel syndrome, unspecified; I45.81 Long QT syndrome; R13.10 Dysphagia, unspecified; M19.90 Unspecified osteoarthritis, unspecified site; F32.9 Major depressive disorder, single episode, unspecified; G47.33 Obstructive sleep apnea (adult) (pediatric); F43.10 Post-traumatic stress disorder, unspecified; Z86.711 Personal history of pulmonary embolism; Z98.84 Bariatric surgery status; Z90.710 Acquired absence of both cervix and uterus; Z80.0 Family history of malignant neoplasm of digestive organs; Z80.41 Family history of malignant neoplasm of ovary; Z85.01 Personal history of malignant neoplasm of esophagus; I25.2 Old myocardial infarction; E78.5 Hyperlipidemia, unspecified
CPT/HCPCS: 36415; 71010; 74220; 76700; 78226; 80048; 80061; 80076; 83690; 83880; 84484; 85027; 85379; 93005; 93306; 96372; 96374; 96375; 96376; 99285; A9537; G0378; J1650; J2270; J2805; G0379

== ENCOUNTER → 2017-11-22 | Outpatient (CLI) | payer BC, OTHER ==
[2017-11-22] MEDS: IOHEXOL 240 MG/ML 50ML VIAL. PO (08:40)
[2017-11-22] MEDS: IOHEXOL 300 MG/ML 100ML VIAL. IV (09:30)
== END | disposition home or self-care (01) ==
LOC: KCIC CT 08:23
DX: N28.1 Cyst of kidney, acquired (principal)
CPT/HCPCS: 74177; Q9966; Q9967

== ENCOUNTER → 2018-12-02 | Day surgery (SDC) | payer BC, OTHER ==
[~2018-12-02] MED LIST changes: -ALEN70TA5 PO; +ALEN70TA6 PO; +AMLO5TAB4 PO; +BUPR150T15 PO; +DICL100G18 TP; -GABA-586 PO; +GABA300C18 PO; +HYDR-3164 PO; -HYDR-971 PO; -HYDR15SO4 PO; +HYDR15SO6 PO; -HYDR200T PO; +HYDR200T71 PO; +IV RINGERS,LACTATED 1000ML 1,000 ML IV SCH; +LISI1TAB3 PO; +MELO15TA6 PO; +METH-37 PO; +METO-239 PO; +MIDAZOLAM HCL/PF 5 MG/5 ML VIAL. IV ONE; +MIDAZOLAM HCL/PF 5 MG/5 ML VIAL. ONE; +NAPR-514 PO; -NAPR500T3 PO; -NIAC500T10 PO; +NIAC500T14 PO; +OMEP20CA10 PO; -OMEP20CA9 PO; +PANT40TA77 PO; +POLY119P4 PO; +TRAZ-86 PO; -TRAZ100T12 PO; +URSO300C13 PO; +[UNRECOGNIZED DRUG - CODE] PO; -[UNRECOGNIZED DRUG - CODE] PO; +diphenhydrAMINE 50 MG/ML VIAL IV ONE; +diphenhydrAMINE 50 MG/ML VIAL ONE; +fentaNYL PF VIAL 100 MCG/2 ML VIAL IV ONE; +fentaNYL PF VIAL 100 MCG/2 ML VIAL ONE
[2018-12-02 16:43] VITALS: BP 173/68
== END | disposition home or self-care (01) ==
LOC: SURG 15:07
PROVIDERS: ATTEND Internal Medicine Gastroenterology
DX: R13.10 Dysphagia, unspecified (principal); F32.9 Major depressive disorder, single episode, unspecified; K58.9 Irritable bowel syndrome, unspecified; K21.9 Gastro-esophageal reflux disease without esophagitis; F41.9 Anxiety disorder, unspecified; E78.00 Pure hypercholesterolemia, unspecified; I10 Essential (primary) hypertension; M79.7 Fibromyalgia; M32.9 Systemic lupus erythematosus, unspecified; Z82.49 Family history of ischemic heart disease and other diseases of the circulatory system; Z80.0 Family history of malignant neoplasm of digestive organs; Z80.41 Family history of malignant neoplasm of ovary; Z87.891 Personal history of nicotine dependence; Z79.899 Other long term (current) drug therapy; Z98.51 Tubal ligation status; Z90.710 Acquired absence of both cervix and uterus; Z98.890 Other specified postprocedural states
CPT/HCPCS: 43235; 43450; J1200; J2250; J3010; G0500

== ENCOUNTER → 2019-04-07 | Outpatient (CLI) | payer BC, OTHER ==
[2018-12-02 16:43] VITALS: BP 173/68
[~2019-04-07] MED LIST changes: -IV RINGERS,LACTATED 1000ML 1,000 ML IV SCH; -MIDAZOLAM HCL/PF 5 MG/5 ML VIAL. IV ONE; -MIDAZOLAM HCL/PF 5 MG/5 ML VIAL. ONE; +PANT40TA3 PO; +PANT40TA5 PO; -PANT40TA77 PO; -diphenhydrAMINE 50 MG/ML VIAL IV ONE; -diphenhydrAMINE 50 MG/ML VIAL ONE; -fentaNYL PF VIAL 100 MCG/2 ML VIAL IV ONE; -fentaNYL PF VIAL 100 MCG/2 ML VIAL ONE
--- NOTE | 2019-04-07 13:50 | RAD ---
DATE: 04/07/2019 EXAM: MAMMO MICHELA SCREENING BILATERAL HISTORY: Routine screening COMPARISON: None available This study was interpreted with the benefit of Computerized Aided Detection (CAD). Breast Density: SCATTERED The breast parenchyma shows scattered fibroglandular densities. Breast parenchyma level B. FINDINGS: 2-D and 3-D tomosynthesis imaging was performed in CC and MLO projections. No spiculated mass or architectural distortion is evident. Minimal benign type calcifications are present. No suspicious microcalcifications are seen. Benign-appearing lymph nodes are partially visualized in the axillary regions. IMPRESSION: There is no mammographic evidence of malignancy in either breast. BI-RADS CATEGORY: 2 BENIGN FINDING(S) RECOMMENDED FOLLOW-UP: 12M 12 MONTH FOLLOW-UP PQRS compliance statement: Patient information was entered into a reminder system with a target due date for the next mammogram. Mammography is a sensitive method for finding small breast cancers, but it does not detect them all and is not a substitute for careful clinical examination. A negative mammogram does not negate a clinically suspicious finding and should not result in delay in biopsying a clinically suspicious abnormality. "Our facility is accredited by the [employer] Mammography Program."
== END | disposition home or self-care (01) ==
LOC: MAMMO 07:31
PROVIDERS: ATTEND Family Medicine
DX: Z12.31 Encounter for screening mammogram for malignant neoplasm of breast (principal); N64.89 Other specified disorders of breast
CPT/HCPCS: 77063; 77067

== ENCOUNTER 2019-08-12 08:20 | Emergency (ER) | payer BC, OTHER ==
[~2019-08-12] VITALS: Ht 162.6 cm; Wt 77.1 kg
[~2019-08-12 08:20] MED LIST changes: +LISI1TAB23 PO; -LISI1TAB3 PO; -PANT40TA3 PO; -PANT40TA5 PO; +PANT40TA77 PO
[2019-08-12 08:45] LABS: BILIRUBIN,URINE NEGATIVE (NEG); CLARITY,URINE CLEAR; COLOR,URINE YELLOW; NITRITE,URINE NEGATIVE (NEG); PH,URINE 5.5; PROTEIN,URINE NEGATIVE (NEG-TRACE); UROBILINOGEN,URINE 0.2 mg/dL (0.2 mg/dL)
[2019-08-12] MEDS ORDERED: KETOROLAC 60 MG/2 ML VIAL. IM ONE (09:00)
[2019-08-12 09:10] LABS: SQUAMOUS EPITHELIAL CELL,UR MANY /LPF
[2019-08-12 09:12] LABS: RBC,URINE >40 /HPF (0-2)
[2019-08-12 09:13] LABS: BACTERIA,URINE MODERATE /HPF (0-FEW)
[2019-08-12] MEDS ORDERED: SULF1TAB24 PO (09:43)
[2019-08-12] MEDS ORDERED: HYDR-3164 PO (09:43)
[2019-08-12] MEDS ORDERED: PHEN100T82 PO (09:43)
--- NOTE | 2019-08-12 09:43 | PHYS DOC ---
Past Medical History Past Medical History: Depression, DVT, Fibromyalgia, GERD, High Cholesterol, Hypertension, [place], Other Additional Past Medical Histor: Lupus Past Surgical History: Gastric Bypass, Hysterectomy, Tubal ligation Additional Past Surgical Histo: SCAR TISSUE FROM ABD. R/O HYSTERECTOMY, 2 ESOPHAGEAL DILATIONS, NECK SX Alcohol Use: Rarely Drug Use: None Adult General Chief Complaint Chief Complaint: URINARY RETENTION HPI HPI Patient is a 64 year old female who presents with complaining of unable to urinate. Patient complaining of urinary frequency and dysuria for the last 3 days with suprapubic discomfort feeling with radiation to right flank and nausea without vomiting, fever and chills, diarrhea and constipation, vaginal bleeding or discharge. Patient complaining of unable to empty her bladder completely. Review of Systems Review of Systems Constitutional: Denies fever or chills [] Eyes: Denies change in visual acuity, redness, or eye pain [] HENT: Denies nasal congestion or sore throat [] Respiratory: Denies cough or shortness of breath [] Cardiovascular: No additional information not addressed in HPI [] GI: Reports abdominal pain, nausea, denies vomiting, bloody stools or diarrhea [] : Reports dysuria and frequency Musculoskeletal: Denies back pain or joint pain [] Integument: Denies rash or skin lesions [] Neurologic: Denies headache, focal weakness or sensory changes [] Endocrine: Denies polyuria or polydipsia [] All other systems were reviewed and found to be within normal limits, except as documented in this note. Current Medications Current Medications Current Medications Medications (Trade) Dose Ordered Sig/[facility] Start Time Stop Time Status Last Admin Dose Admin Ketorolac Tromethamine (Toradol Im) 60 mg 1X ONCE 08/12/19 09:00 08/12/19 09:01 DC 08/12/19 09:27 60 MG Allergies Allergies Allergies Coded Allergies Type Severity Reaction Last Updated Verified No Known Drug Allergies 12/02/18 No Physical Exam Physical Exam Constitutional: Well developed, well nourished, mild distress, non-toxic appearance. [] HENT: Normocephalic, atraumatic. Eyes: PERRLA, EOMI, conjunctiva normal, no discharge. [] Neck: Normal range of motion, no tenderness, supple, no stridor. [] Cardiovascular:Heart rate regular rhythm, no murmur [] Lungs & Thorax: Bilateral breath sounds clear to auscultation [] Abdomen: Bowel sounds normal, soft, no tenderness, no masses, no pulsatile masses. [] Skin: Warm, dry, no erythema, no rash. [] Back: No tenderness, no CVA tenderness. [] Extremities: No tenderness, no cyanosis, no clubbing, ROM intact, no edema. [] Neurologic: Alert and oriented X 3, no focal deficits noted. [] Psychologic: Affect normal, judgement normal, mood normal. [] Current Patient Data Vital Signs Vital Signs Date Time Temp Pulse Resp B/P (MAP) Pulse Ox O2 Delivery O2 Flow Rate FiO2 08/12/19 09:50 78 18 97 08/12/19 08:30 99.0 149/73 (98) Room Air 99.0 Lab Values Laboratory Tests Test 08/12/19 08:32 Urine Collection Type Void Urine Color Yellow Urine Clarity Clear Urine pH 5.5 Urine Specific Sebastian 1.025 Urine Protein Negative mg/dL (NEG-TRACE) Urine Glucose (UA) Negative mg/dL (NEG) Urine Ketones (Stick) Negative mg/dL (NEG) Urine Blood Moderate (NEG) Urine Nitrite Negative (NEG) Urine Bilirubin Negative (NEG) Urine Urobilinogen Dipstick 0.2 mg/dL (0.2 mg/dL) Urine Leukocyte Esterase Small (NEG) Urine RBC >40 /HPF (0-2) Urine WBC 11-20 /HPF (0-4) Urine Squamous Epithelial Cells Many /LPF Urine Renal Epithelial Cells Few /LPF Urine Bacteria Moderate /HPF (0-FEW) Urine Mucus Marked /LPF EKG EKG [] Radiology/Procedures Radiology/Procedures [] Course & Med Decision Making Course & Med Decision Making Pertinent Labs reviewed. (See chart for details) Evaluation of patient in ER showed 64-year-old nondiabetic patient with complaining of urinary frequency and dysuria. Patient had 90 mL urine with bladder scan. Patient had UA showed UTI. Plan discharge patient home with diagnosis of hemorrhagic cystitis. I've spoken with the patient and/or caregivers. I've explained the patient's condition, diagnosis and treatment plan based on information available to me at this time. I've answered the patient's and/or caregivers questions and addressed any concerns. The patient and/or caregivers have a good understanding the patient's diagnosis, condition and treatment plan as can be expected at this point. Vital signs have been stabilized. The patient's condition is stable for discharge from the emergency department. The patient will pursue further outpatient evaluation with her primary care provider or other designated consulting physician as outlined in the discharge instructions. Patient and/or caregivers are agreeable to this plan of care and follow-up instructions have been explained in detail. The patient and/or caregivers have received these instructions in written format and expressed understanding of these discharge instructions. The patient and her caregivers are aware that if any significant change in condition or worsening of symptoms should prompt him to immediately return to this of the closest emergency department. If an emergent department is not readily available I would encourage him to call 911. Dragon Disclaimer Dragon Disclaimer This electronic medical record was generated, in whole or in part, using a voice recognition dictation system. Departure Departure Impression: Primary Impression: Hemorrhagic cystitis Additional Impression: Dysuria Disposition: HOME, SELF-CARE (at 0941) Condition: IMPROVED Referrals: DYAN SHANKS MD (PCP) Patient Instructions: Urinary Tract Infection Additional Instructions: Drink plenty of liquids Follow-up with your primary care physician in 3-5 days Return to ER if not getting better Scripts Phenazopyridine Hcl (PYRIDIUM) 100 Mg Tablet 100 MG PO TID for dysuria, #10 TAB Prov: CELE ROMANO MD 08/12/19 Hydrocodone/Apap 5-325 (NORCO 5-325 TABLET) 1 Each Tablet 1 TAB PO PRN Q6HRS PRN for PAIN, #10 TAB 0 Refills Prov: CELE ROMANO MD 08/12/19 Sulfamethoxazole/Trimethoprim (BACTRIM DS TABLET) 1 Each Tablet 1 TAB PO BID for infection, #14 TAB Prov: CELE ROMANO MD 08/12/19 Problem Qualifiers CELE ROMANO MD Aug 12, 2019 09:43
[2019-08-12 09:50] VITALS: BP 156/79
== END 2019-08-12 09:55 | disposition home or self-care (01) ==
LOC: ER 08:20
DX: N30.90 Cystitis, unspecified without hematuria (principal); K21.9 Gastro-esophageal reflux disease without esophagitis; E78.00 Pure hypercholesterolemia, unspecified; I10 Essential (primary) hypertension; I25.2 Old myocardial infarction; Z86.718 Personal history of other venous thrombosis and embolism; Z90.710 Acquired absence of both cervix and uterus; Z98.51 Tubal ligation status; Z98.84 Bariatric surgery status
CPT/HCPCS: 81001; 87086; 96372; 99285; J1885

== ENCOUNTER → 2020-04-07 | Outpatient (CLI) | payer BC, OTHER ==
[~2020-04-07] MED LIST changes: -BUPR300T4 PO; +BUPR300T92 PO; -DICL100G18 TP; +DICL100G54 TP; -OMEP20CA10 PO; +OMEP20CA16 PO; +PHEN100T82 PO; +SULF1TAB24 PO; +TRAZ-123 PO; -TRAZ-86 PO
--- NOTE | 2020-04-08 17:33 | RAD ---
DATE: 04/07/2020 10:12 AM EXAM: MAMMO MICHELA SCREENING BILATERAL HISTORY: Screening COMPARISON: 04/07/2019 Bilateral CC and MLO views of the breasts were performed. Bilateral breast tomosynthesis was performed in CC and MLO projections. This study was interpreted with the benefit of Computerized Aided Detection (CAD). FINDINGS: Breast Density: SCATTERED The breast parenchyma shows scattered fibroglandular densities. Breast parenchyma level B No suspicious masses, microcalcifications or architectural distortion is present to suggest malignancy in either breast. The visualized axillae are unremarkable. IMPRESSION: No mammographic evidence of malignancy. BI-RADS CATEGORY: 1 NEGATIVE RECOMMENDED FOLLOW-UP: 12M 12 MONTH FOLLOW-UP Annual screening mammography is recommended, unless clinically indicated sooner based on symptoms or change in physical exam. PQRS compliance statement: Patient information was entered into a reminder system with a target due date 04/08/2021 for the next mammogram. Mammography is a sensitive method for finding small breast cancers, but it does not detect them all and is not a substitute for careful clinical examination. A negative mammogram does not negate a clinically suspicious finding and should not result in delay in biopsying a clinically suspicious abnormality. "Our facility is accredited by the [employer] Mammography Program."
== END ==
LOC: MAMMO 09:54
PROVIDERS: ATTEND Family Medicine
DX: Z12.31 Encounter for screening mammogram for malignant neoplasm of breast (principal)
CPT/HCPCS: 77063; 77067

== ENCOUNTER 2020-05-27 17:58 | Emergency (ER) | payer BC, OTHER ==
[~2020-05-27] VITALS: Ht 162.6 cm; Wt 90.4 kg
[~2020-05-27 17:58] MED LIST changes: +NIAC-23 PO; -NIAC500T14 PO
--- NOTE | 2020-05-27 18:45 | PHYS DOC ---
Past Medical History Past Medical History: Depression, DVT, Fibromyalgia, GERD, High Cholesterol, Hypertension, CO, Other Additional Past Medical Histor: Lupus Past Surgical History: Gastric Bypass, Hysterectomy, Tubal ligation Additional Past Surgical Histo: SCAR TISSUE FROM ABD. R/O HYSTERECTOMY, 2 ESOPHAGEAL DILATIONS, NECK SX Smoking Status: Former Smoker Alcohol Use: Rarely Drug Use: None General Adult EDM: Chief Complaint: SHORTNESS OF BREATH HPI: HPI: 64-year-old female with underlying history of hypertension, hyperlipidemia, history of blood clot however not on anticoagulation presents with a complaint of shortness of breath x1 week, worse when laying down as well as exertional. She describes headache, nausea, fever, cough. Patient states she was seen with COVID testing at the beginning of the month of which was negative however was instructed to come to the emergency department for further evaluation given her complaints. Nothing makes her symptoms worse on examination aside from that discussed above. She currently denies any chest pain on examination. Review of Systems: Review of Systems: Constitutional: fever Eyes: Denies change in visual acuity. [] HENT: Denies nasal congestion or sore throat. [] Respiratory: Cough/SOB Cardiovascular: Denies chest pain or edema. [] GI: Denies abdominal pain, + nausea, no vomiting, bloody stools or diarrhea. [] : Denies dysuria. [] Musculoskeletal: Denies back pain or joint pain. [] Neurologic: + headache, no focal weakness or sensory changes. [] Endocrine: Denies polyuria or polydipsia. [] Lymphatic: Denies swollen glands. [] Heart Score: Risk Factors: Risk Factors: DM, Current or recent (<one month) smoker, HTN, HLP, family history of CAD, obesity. Risk Scores: Score 0 - 3: 2.5% MACE over next 6 weeks - Discharge Home Score 4 - 6: 20.3% MACE over next 6 weeks - Admit for Clinical Observation Score 7 - 10: 72.7% MACE over next 6 weeks - Early Invasive Strategies Allergies: Allergies: Allergies Coded Allergies Type Severity Reaction Last Updated Verified No Known Drug Allergies 12/02/18 No Physical Exam: PE: Constitutional: Well developed, well nourished, no acute distress, non-toxic appearance. [] HENT: Normocephalic, atraumatic, bilateral external ears normal, oropharynx moist, no oral exudates, nose normal. [] Eyes: PERRLA, EOMI, conjunctiva normal, no discharge. [] Cardiovascular:Heart rate regular rhythm, no murmur [] Lungs & Thorax: Bilateral breath sounds clear to auscultation [] Abdomen: Bowel sounds normal, soft, no tenderness, no masses, no pulsatile masses. [] Skin: Warm, dry, no erythema, no rash. [] Back: No tenderness, no CVA tenderness. [] Extremities: No tenderness, no edema. [] Neurologic: Alert and oriented X 3, no focal deficits noted. [] Psychologic: Affect normal, judgement normal, mood normal. [] Current Patient Data: Vital Signs: Vital Signs Date Time Temp Pulse Resp B/P (MAP) Pulse Ox O2 Delivery O2 Flow Rate FiO2 05/27/20 18:27 99.1 91 19 156/95 (115) 100 Room Air 99.1 EKG: EKG: EKG reviewed, dilatation time 1921, heart rate 85, left axis deviation no STEMI [] Radiology/Procedures: Radiology/Procedures: [] Course & Med Decision Making: Course & Med Decision Making Pertinent Labs and Imaging studies reviewed. (See chart for details) []64-year-old female with underlying history of hypertension, hyperlipidemia, history of blood clot however not on anticoagulation presents with a complaint of shortness of breath x1 week, worse when laying down as well as exertional. She describes headache, nausea, fever, cough. Patient states she was seen with COVID testing at the beginning of the month of which was negative however was instructed to come to the emergency department for further evaluation given her complaints. Nothing makes her symptoms worse on examination aside from that discussed above. She currently denies any chest pain on examination. Labs and imaging reviewed, chest x-ray is unremarkable, troponin within normal limits, creatinine 1.0, white blood cell count 6.3 d-dimer mildly elevated 0.90, will plan for CT of the chest to rule out acute pulmonary process. BNP within normal limits. Discussed discharge plan if testing remains unremarkable. Patient voices understanding, discussed return precautions as well. CTA reveals no evidence of acute PE however she does have some groundglass opacities in the right middle and lower lobe. Would recommend a azithromycin. COVID testing as previously described. Will provide COVID precautions. COVID-19 CRITERIA: The patient was evaluated during the global COVID-19 pandemic, and that diagnosis was suspected/considered upon their initial presentation. Their evaluation, treatment and testing was consistent with current guidelines for patients who present with complaints or symptoms that may be related to COVID-19. Kody Disclaimer: Kody Disclaimer: This electronic medical record was generated, in whole or in part, using a voice recognition dictation system. Departure Departure Impression: Primary Impression: Dyspnea Qualified Codes: R06.02 - Shortness of breath Additional Impression: Abnormal CT scan of lung Disposition: HOME, SELF-CARE Condition: IMPROVED Referrals: DYAN SHANKS MD (PCP) Patient Instructions: Pneumonia, Adult Additional Instructions: You have been tested for or diagnosed with COVID-19. It is an infection caused by a new type of coronavirus. COVID-19 will cause cold-like or mild flu symptoms in most. It can cause more severe symptoms like problems breathing in some. There is no treatment for COVID-19. The body will clear the infection over time. Self-care will help to ease discomfort. Steps to Take: Self-Care Rest as needed. Healthy habits may help you feel better. Steps include: Choose healthy foods including fruits and vegetables. Drink water throughout the day. Get plenty of sleep each night. If you smoke, try to quit. It may ease breathing. Avoid alcohol. Keep Others Healthy The virus can spread to others. Droplets are released every time you sneeze or cough. The droplets can get into the mouth, nose, or eyes of people near you and lead to infection. To lower the chances of spreading COVID-19 to others: Stay at home until your doctor has said it is safe to leave. If you tested positive this will mean staying isolated until both of the following are true: At least 7 days have passed since the start of illness. You are free of fever for at least 72 hours without the use of medicine. During this time: - Avoid public areas, events, or transportation. Do not return to work or school until your doctor has said it is safe to do so. - Call ahead if you need to go to a medical center. Let them know you may have COVID-19. It will help them guide you where to go. They may also ask you to wear a facemask when you come to the office. - If you call for emergency medical services, let them know you may have COVID- 19. While at home: - Try to avoid close contact with others. Stay about 6 feet away. - If possible, spend most of your time in a separate room from others. - Use a face mask if you will be in close contact with others such as sharing a room or vehicle. - Have someone wipe down common surfaces in the home. Use household paper sheeter every day on areas like doorknobs, counters, or sinks. - Cough or sneeze into a tissue. Throw the tissue away right after use. If a tissue is not available, cough or sneeze into your elbow. - Wash your hands often. Wash them after sneezing or coughing. Use soap and water and wash for at least 20 seconds. Alcohol based hand dry cleaner can be used if soap and water is not available. - Do not prepare food for others. Avoid sharing personal items like forks, spoons, or toothbrushes. - Avoid close contact with pets while you are sick. There is no evidence of the virus passing to pets. This is a safety step until more is known about this virus. Isolation can be frustrating. Social interaction can help. Keep in touch with friends and family through phone and tech options. You can still interact with others in your home, just keep a safe distance of about 6 feet. Follow-up: Your doctors office will check in with you to see if there are any changes in your health. You may be asked to keep track of symptoms to share with them. They will also let you know when you are clear to be in public again. Problems to Look Out For: Contact your doctor if your recovery is not going as you expect. Get emergency care if you have problems such as: - Trouble breathing - Nonstop chest pain or pressure - Changes in awareness, confusion, or problems waking - Lips or face have bluish color - Worsening of symptoms If you think you have an emergency, call for emergency medical services right away. As taken from [facility] Azithromycin (ZITHROMAX) 500 Mg Tablet 1 TAB PO DAILY, #5 TAB Prov: HOLLY ANGEL MD 05/27/20 Justicifation of Admission Dx: Justifications for Admission: Justification of Admission Dx: N/A COVID-19 Assessment: COVID-19 Patient Risks: Age 65 or older: No Sign of co-morbidity: Yes Exp to person + for COVID: No Exp to PUI: Yes Travel from affected area: No Lower respiratory symptoms: Yes Fever: Yes PPE Use: Full PPE with N95 mask or PAPR: Yes HOLLY ANGEL MD May 27, 2020 18:45
[2020-05-27 18:57] LABS: BASO % 0 % (0-3); EOS # 0.2 x10^3/uL (0.0-0.7); EOS % 3 % (0-3); HEMATOCRIT 38.4 % (36.0-47.0); HEMOGLOBIN 12.7 g/dL (12.0-15.5); LYMPH # 2.5 x10^3/uL (1.0-4.8); LYMPH % 39 % (24-48); MEAN CORPUSCULAR HEMOGLOBIN 29 pg (25-35); MEAN CORPUSCULAR HGB CONC 33 g/dL (31-37); MEAN CORPUSCULAR VOLUME 87 fL (79-100); MONO # 0.5 x10^3/uL (0.0-1.1); MONO % 9 % (0-9); NEUT # 3.1 x10^3/uL (1.8-7.7); NEUT % 49 % (31-73); PLATELET COUNT 281 x10^3/uL (140-400); RED BLOOD COUNT 4.42 x10^6/uL (3.50-5.40); RED CELL DISTRIBUTION WIDTH 14.7 % (11.5-14.5); WHITE BLOOD COUNT 6.3 x10^3/uL (4.0-11.0)
[2020-05-27 19:05] LABS: CALCIUM 9.4 mg/dL (8.5-10.1); GFR 67.5; POTASSIUM 3.9 mmol/L (3.5-5.1)
[2020-05-27 19:11] LABS: ALBUMIN 3.6 g/dL (3.4-5.0); ALBUMIN/GLOBULIN RATIO 0.9 (1.0-1.7); TOTAL BILIRUBIN 0.3 mg/dL (0.2-1.0); TOTAL PROTEIN 7.8 g/dL (6.4-8.2)
--- NOTE | 2020-05-27 19:12 | RAD ---
Exam: Chest one view INDICATION: Cough TECHNIQUE: Frontal view of the chest Comparisons: None FINDINGS: The cardiomediastinal silhouette and pulmonary vessels are within normal limits. The lung and pleural spaces are clear. IMPRESSION: No acute cardiopulmonary process. Electronically signed by: Juan Rebollar MD (05/27/2020 7:09 PM) [id number]
[2020-05-27] MEDS ORDERED: CONTRAST GIVEN. MC PRN (21:45)
[2020-05-27] MEDS ORDERED: IOHEXOL 350 MG/ML 100 ML VIAL. IV ONE (22:00)
--- NOTE | 2020-05-27 22:19 | RAD ---
EXAM: CT chest with contrast - pulmonary embolus protocol CLINICAL HISTORY: Shortness of breath COMPARISON: None. TECHNIQUE: CT of the chest following the administration of intravenous contrast during the pulmonary arterial phase. Axial, coronal and sagittal reformatted images were generated including MIP images. ---PQRS compliance statement - One or more of the following individualized dose reduction techniques were utilized for this study: 1. Automated exposure control 2. Adjustment of the mA and/or kV according to patient size 3. Use of iterative reconstruction technique--- FINDINGS: CHEST: Diagnostic quality: Adequate. Pulmonary emboli: No pulmonary emboli to the level of the subsegmental branches. More peripheral vessels are not well assessed. Right heart strain: None Pulmonary arteries: Normal in caliber. Heart is not enlarged. No pericardial effusion. No axillary lymphadenopathy. No mediastinal or hilar lymphadenopathy. No pleural effusion or pneumothorax. Groundglass opacities in the medial right lower lobe and left lower lobes may represent atypical infectious or inflammatory process Visualized Upper abdomen: Left upper pole hypodense renal cyst is partially profiled. Changes of gastric bypass are also partially profiled. Bones: Evaluation of the osseous structures limited given MIP reconstructions. No aggressive osseous lesion is seen. IMPRESSION: 1. No pulmonary emboli to the level of the subsegmental branches. More peripheral vessels are not well assessed. 2. Groundglass opacities in the medial right lower lobe and left lower lobes may represent atypical infectious or inflammatory process Electronically signed by: Amor Chahal MD (05/27/2020 10:16 PM) EMILY
[2020-05-27] MEDS ORDERED: AZIT500T PO (22:34)
[2020-05-27 23:00] VITALS: BP 157/80
== END 2020-05-27 23:10 | disposition home or self-care (01) ==
LOC: ER 17:58
DX: R06.02 Shortness of breath (principal); Z20.828 Contact with and (suspected) exposure to other viral communicable diseases; R94.2 Abnormal results of pulmonary function studies; R51 Headache; R50.9 Fever, unspecified; K21.9 Gastro-esophageal reflux disease without esophagitis; E78.00 Pure hypercholesterolemia, unspecified; I10 Essential (primary) hypertension; M32.9 Systemic lupus erythematosus, unspecified; I25.2 Old myocardial infarction; Z86.718 Personal history of other venous thrombosis and embolism; Z95.1 Presence of aortocoronary bypass graft; Z87.891 Personal history of nicotine dependence
CPT/HCPCS: 71045; 71275; 80053; 83880; 84484; 85025; 85379; 99285; Q9967; U0003; 36415

== ENCOUNTER 2020-06-19 07:59 | Emergency (ER) | payer BC, OTHER ==
[~2020-06-19] VITALS: Ht 162.6 cm; Wt 90.4 kg
[~2020-06-19 07:59] MED LIST changes: +AZIT500T PO
--- NOTE | 2020-06-19 08:10 | PHYS DOC ---
Past Medical History Past Medical History: Depression, DVT, Fibromyalgia, GERD, High Cholesterol, Hypertension, RI, Other Additional Past Medical Histor: Lupus Past Surgical History: Gastric Bypass, Hysterectomy, Tubal ligation Additional Past Surgical Histo: SCAR TISSUE FROM ABD. R/O HYSTERECTOMY, 2 ESOPHAGEAL DILATIONS, NECK SX Smoking Status: Former Smoker Alcohol Use: Rarely Drug Use: None General Adult EDM: Chief Complaint: ABDOMINAL PAIN HPI: HPI: Patient is a 64 year old female who presents with lower abdominal pain that began last evening and got worse about 3:00 this morning. Pain is described as a pressure and bloating in the lower abdomen radiating to the right flank. Patient has nausea but no vomiting or diarrhea. Patient has any fever. Of note patient had pneumonia at the end of April and has improved her symptoms since then. Patient denies dysuria. Patient says the pain is worse with movement and palpation and rates the pain as 10 out of 10 Review of Systems: Review of Systems: Constitutional: Denies fever or chills. [] Eyes: Denies change in visual acuity. [] HENT: Denies nasal congestion or sore throat. [] Respiratory: Denies cough or shortness of breath. [] Cardiovascular: Denies chest pain or edema. [] GI: Denies vomiting, bloody stools or diarrhea. Complains of abdominal pain and nausea [] : Denies dysuria. [] Musculoskeletal: Complains of back pain but no joint pain. [] Integument: Denies rash. [] Neurologic: Denies headache, focal weakness or sensory changes. [] Endocrine: Denies polyuria or polydipsia. [] Lymphatic: Denies swollen glands. [] Psychiatric: Denies depression or anxiety. [] Heart Score: Risk Factors: Risk Factors: DM, Current or recent (<one month) smoker, HTN, HLP, family history of CAD, obesity. Risk Scores: Score 0 - 3: 2.5% MACE over next 6 weeks - Discharge Home Score 4 - 6: 20.3% MACE over next 6 weeks - Admit for Clinical Observation Score 7 - 10: 72.7% MACE over next 6 weeks - Early Invasive Strategies Allergies: Allergies: Allergies Coded Allergies Type Severity Reaction Last Updated Verified No Known Drug Allergies 12/02/18 No Physical Exam: PE: Constitutional: Well developed, well nourished, no acute distress, non-toxic appearance. [] HENT: Normocephalic, atraumatic, bilateral external ears normal, no trismus nose normal. [] Eyes: PERRLA, EOMI, conjunctiva normal, no discharge. [] Neck: Normal range of motion, no tenderness, supple, no stridor. [] Cardiovascular:Heart rate regular rhythm, peripheral pulses intact, cap refill brisk Lungs & Thorax: Bilateral breath sounds clear no respiratory distress Abdomen: Mild distention with tenderness on the lower abdomen and right side abdomen without guarding or rebound, no masses, no pulsatile masses. [] Skin: Warm, dry, no erythema, no rash. [] Back: No tenderness, no CVA tenderness. [] Extremities: No tenderness, no cyanosis, no clubbing, ROM intact, no edema. [] Neurologic: Alert and oriented X 3, normal motor function, normal sensory funct ion, no focal deficits noted. [] Psychologic: Affect normal, judgement normal, mood normal. [] Current Patient Data: Labs: Laboratory Tests Test 06/19/20 08:45 06/19/20 08:50 White Blood Count 10.9 x10^3/uL Red Blood Count 4.35 x10^6/uL Hemoglobin 12.7 g/dL Hematocrit 38.1 % Mean Corpuscular Volume 87 fL Mean Corpuscular Hemoglobin 29 pg Mean Corpuscular Hemoglobin Concent 33 g/dL Red Cell Distribution Width 15.5 % Platelet Count 277 x10^3/uL Neutrophils (%) (Auto) 56 % Lymphocytes (%) (Auto) 31 % Monocytes (%) (Auto) 12 % Eosinophils (%) (Auto) 1 % Basophils (%) (Auto) 1 % Neutrophils # (Auto) 6.1 x10^3/uL Lymphocytes # (Auto) 3.4 x10^3/uL Monocytes # (Auto) 1.3 x10^3/uL Eosinophils # (Auto) 0.1 x10^3/uL Basophils # (Auto) 0.1 x10^3/uL Prothrombin Time 12.8 SEC Prothromb Time International Ratio 1.0 Activated Partial Thromboplast Time 26 SEC Sodium Level 141 mmol/L Potassium Level 3.1 mmol/L Chloride Level 102 mmol/L Carbon Dioxide Level 30 mmol/L Anion Gap 9 Blood Urea Nitrogen 16 mg/dL Creatinine 1.3 mg/dL Estimated GFR (Cockcroft-Gault) 49.9 BUN/Creatinine Ratio 12 Glucose Level 85 mg/dL Calcium Level 8.7 mg/dL Total Bilirubin 0.5 mg/dL Aspartate Amino Transf (AST/SGOT) 26 U/L Alanine Aminotransferase (ALT/SGPT) 33 U/L Alkaline Phosphatase 92 U/L Total Protein 7.7 g/dL Albumin 3.7 g/dL Albumin/Globulin Ratio 0.9 Lipase 105 U/L Urine Collection Type Unknown Urine Color Yellow Urine Clarity Clear Urine pH 5.5 Urine Specific [place] >=1.030 Urine Protein Negative mg/dL Urine Glucose (UA) Negative mg/dL Urine Ketones (Stick) Negative mg/dL Urine Blood Negative Urine Nitrite Negative Urine Bilirubin Negative Urine Urobilinogen Dipstick 1.0 mg/dL Urine Leukocyte Esterase Moderate Urine RBC 6-10 /HPF Urine WBC 20-40 /HPF Urine Squamous Epithelial Cells Mod /LPF Urine Bacteria Few /HPF Urine Mucus Mod /LPF Current Medications Medications (Trade) Dose Ordered Sig/Florencio Route PRN Reason Start Time Stop Time Status Last Admin Dose Admin Ondansetron HCl (Zofran) 4 mg 1X ONCE IVP 06/19/20 09:00 06/19/20 09:01 DC 06/19/20 08:54 Morphine Sulfate (Morphine Sulfate) 2 mg 1X ONCE IV 06/19/20 09:00 06/19/20 09:01 DC 06/19/20 08:55 Dicyclomine HCl (Bentyl) 20 mg 1X ONCE IM 06/19/20 09:45 06/19/20 09:46 DC 06/19/20 09:48 Vital Signs: Vital Signs Date Time Temp Pulse Resp B/P (MAP) Pulse Ox O2 Delivery O2 Flow Rate FiO2 06/19/20 10:20 92 20 162/88 (112) 98 Room Air 06/19/20 09:50 90 20 188/92 (124) 96 06/19/20 09:39 16 99 Room Air 06/19/20 09:20 86 20 180/86 (117) 99 06/19/20 08:55 18 98 Room Air 06/19/20 08:52 94 20 178/94 (122) 99 Room Air 06/19/20 08:23 98.2 86 16 168/81 (110) 99 Room Air 98.2 EKG: EKG: [] Radiology/Procedures: Radiology/Procedures: [][facility] [address] [place], [place] [id number] IMAGING REPORT Signed PATIENT: OCTAVIO PULIDO ACCOUNT: [id number] : 1955 LOCATION: ER AGE: 64 SEX: F EXAM STATUS: REG ER ORD. PHYSICIAN: FINA AZUL MD REASON: abd pain, nausea, distension PROCEDURE: CT ABD PELV W/ORAL&IV CONTRAST EXAM: CT ABDOMEN/PELVIS WITH CONTRAST. HISTORY: Abdominal pain, nausea, abdominal distention. TECHNIQUE: Computed tomography of the abdomen and pelvis was performed after the intravenous administration of iodinated contrast. One or more of the following individualized dose reduction techniques were utilized for this examination: 1. Automated exposure control. 2. Adjustment of the mA and/or kV according to patient size. 3. Use of iterative reconstruction technique. COMPARISON: 11/22/2017. FINDINGS: Lung windows through the visualized portions of the bases reveal coronary atherosclerotic calcifications. There is mild basilar atelectasis. Bone windows reveal no suspicious lesions. A calculus in the right distal ureter measures 4 mm. There is mild right hydronephrosis and hydroureter. The right kidney enhances less avidly than the left, consistent with a component of acute obstruction. Another 2 mm calculus is noted in the right renal lower pole. Small bilateral renal cysts appear benign and measure up to 1.3 cm on the left. The uterus is surgically absent. The appendix is not inflamed. Sigmoid diverticulosis is mild. There is no small bowel obstruction. The liver, gallbladder, pancreas, adrenal glands and spleen are unremarkable. There are no pathologically enlarged lymph nodes. Changes of gastric bypass procedure are noted. IMPRESSION: 1. 4 mm obstructing right distal ureteral calculus with mild right hydronephrosis. 2. 2 mm right lower pole renal calculus. Electronically signed by: Shikha Veronica MD (06/19/2020 11:19 AM) [id number] DICTATED and SIGNED BY: FRANCESCA VERONICA MD DATE: 06/19/20 1119 Course & Med Decision Making: Course & Med Decision Making Pertinent Labs and Imaging studies reviewed. (See chart for details) [] Patient reassessed at 9:40 AM. Patient's pain is no different with the morphine. Dose of Bentyl has been ordered. Patient feels much better at 12:10 PM reassessment. 64-year-old female presents with right abdominal pain. Initial differential diagnosis include gallbladder disease, bowel obstruction, appendicitis, UTI, kidney stone. CT reveals a right ureteral stone. Patient has some white blood cells in urine will treat with antibiotics. Patient feels significantly better after treatment in the ER. Patient resting comfortable on reassessment. Discussed with patient return precautions such as fever increased pain vomiting. Dragon Disclaimer: Dragon Disclaimer: This electronic medical record was generated, in whole or in part, using a voice recognition dictation system. Departure Departure Impression: Primary Impression: Right ureteral stone Additional Impression: Right sided abdominal pain Disposition: 01 HOME, SELF-CARE Condition: STABLE Referrals: DYAN SHANKS MD (PCP) UROLOGY 2-3 DAYS Patient Instructions: Kidney Stones Additional Instructions: EMERGENCY DEPARTMENT GENERAL DISCHARGE INSTRUCTIONS THANK YOU for coming to [facility] Emergency Department (ED) today and trusting us with your care. We trust that you had a positive experience in our Emergency Department. If you wish to speak to the department Management you can contact the director emergency department at . YOUR FOLLOW UP INSTRUCTIONS ARE FOLLOWS: Do you have a private doctor? If you do not have a private doctor, please ask for a resource list of physicians or clinics that may be able to assist you with follow up care. The Emergency Physician has interpreted your x-rays. The X-ray specialist will also review them. If there is a change in the findings you will be notified in 48 hours when at all possible. A lab test or lab culture may have been done, your results will be reviewed and you will be notified if you need a change in treatment. ADDITIONAL INSTRUCTIONS AND INFORMATION Your care today has been supervised by a physician who is specially trained in emergency care. Many problems require more than one evaluation for a complete diagnosis and treatment. We recommend that you schedule your follow up appointment as recommended to ensure complete treatment of your illness or injury. If you are unable to obtain follow up care and continue to have a problem, or if your condition worsens we recommend that you return to the ED. We are not able to safely determine your condition over the phone nor are we able to give sound medical advice over the phone. For these safety reasons, if you call for medical advice we will ask you to come to the ED for further evaluation If you have any questions regarding these discharge instructions please call the ED at . SAFETY INFORMATION In the interest of safety, wellness, and injury prevention; we encourage you to wear your seatbelt, if you smoke; quit smoking, and we encourage your family to use protective helmet for bicycling and other sporting events that present an increased risk for head injury. IF YOUR SYMPTOMS WORSEN OR NEW SYMPTOMS DEVELOP, OR YOU HAVE CONCERNS ABOUT YOUR CONDITION; OR IF YOUR CONDITION WORSENS WHILE YOU ARE WAITING FOR YOUR FOLLOW UP APPOINTMENT; EITHER CONTACT YOUR PRIMARY CARE DOCTOR, THE PHYSICIAN WHOSE NAME AND NUMBER YOU WERE GIVEN, OR RETURN TO THE ED IMMEDIATELY. Scripts Cephalexin (KEFLEX) 500 Mg Capsule 500 MG PO QID for 7 Days, #28 CAP Prov: FINA AZUL MD 06/19/20 Hydrocodone/Apap 5-325 (NORCO 5-325 TABLET) 1 Each Tablet 1-2 EACH PO PRN Q6HRS PRN for PAIN, #15 as needed for pain Prov: FINA AZUL MD 06/19/20 Ibuprofen (IBUPROFEN) 600 Mg Tablet 600 MG PO PRN Q6HRS PRN for PAIN, #20 TAB take with food or milk Prov: FINA AZUL MD 06/19/20 Ondansetron Hcl (ZOFRAN) 4 Mg Tablet 1 TAB PO Q6HRS for N/V, #12 TAB Prov: FINA AZUL MD 06/19/20 Tamsulosin Hcl (FLOMAX) 0.4 Mg Cap.er.24h 0.4 MG PO DAILY for 7 Days, #7 TAB Prov: FINA AZUL MD 06/19/20 Justicifation of Admission Dx: Justifications for Admission: Justification of Admission Dx: N/A FINA AZUL MD Jun 19, 2020 08:10
[2020-06-19] MEDS ORDERED: METH4TAB6 PO (08:41)
[2020-06-19 09:00] LABS: BASO # 0.1 x10^3/uL (0.0-0.2); BASO % 1 % (0-3); EOS # 0.1 x10^3/uL (0.0-0.7); EOS % 1 % (0-3); HEMATOCRIT 38.1 % (36.0-47.0); HEMOGLOBIN 12.7 g/dL (12.0-15.5); LYMPH # 3.4 x10^3/uL (1.0-4.8); LYMPH % 31 % (24-48); MEAN CORPUSCULAR HEMOGLOBIN 29 pg (25-35); MEAN CORPUSCULAR HGB CONC 33 g/dL (31-37); MEAN CORPUSCULAR VOLUME 87 fL (79-100); MONO # 1.3 x10^3/uL (0.0-1.1); MONO % 12 % (0-9); NEUT # 6.1 x10^3/uL (1.8-7.7); NEUT % 56 % (31-73); PLATELET COUNT 277 x10^3/uL (140-400); RED BLOOD COUNT 4.35 x10^6/uL (3.50-5.40); RED CELL DISTRIBUTION WIDTH 15.5 % (11.5-14.5); WHITE BLOOD COUNT 10.9 x10^3/uL (4.0-11.0)
[2020-06-19] MEDS ORDERED: ONDANSETRON PF 4 MG/2 ML VIAL. IVP ONE (09:00)
[2020-06-19] MEDS ORDERED: MORPHINE SULFATE 2 MG/ML VIAL. IV ONE (09:00)
[2020-06-19 09:07] LABS: BILIRUBIN,URINE NEGATIVE (NEG); CLARITY,URINE CLEAR; COLOR,URINE YELLOW; NITRITE,URINE NEGATIVE (NEG); PH,URINE 5.5 (<5.0-8.0); PROTEIN,URINE NEGATIVE (NEG-TRACE)
[2020-06-19 09:11] LABS: CALCIUM 8.7 mg/dL (8.5-10.1); CREATININE 1.3 mg/dL (0.6-1.0); GFR 49.9; POTASSIUM 3.1 mmol/L (3.5-5.1)
[2020-06-19 09:14] LABS: PROTHROMBIN TIME PATIENT 12.8 SEC (11.7-14.0)
[2020-06-19 09:16] LABS: ALBUMIN 3.7 g/dL (3.4-5.0); ALBUMIN/GLOBULIN RATIO 0.9 (1.0-1.7); TOTAL BILIRUBIN 0.5 mg/dL (0.2-1.0); TOTAL PROTEIN 7.7 g/dL (6.4-8.2)
[2020-06-19 09:33] LABS: BACTERIA,URINE FEW /HPF (0-FEW); SQUAMOUS EPITHELIAL CELL,UR MOD /LPF; WBC,URINE 20-40 /HPF (0-4)
[2020-06-19] MEDS ORDERED: DICYCLOMINE 20 MG/2 ML VIAL. IM ONE (09:45)
[2020-06-19] MEDS ORDERED: IOHEXOL 300 MG/ML 100ML VIAL. IV ONE (10:30)
[2020-06-19] MEDS ORDERED: IOHEXOL 240 MG/ML 50ML VIAL. PO ONE (10:30)
--- NOTE | 2020-06-19 11:21 | RAD ---
EXAM: CT ABDOMEN/PELVIS WITH CONTRAST. HISTORY: Abdominal pain, nausea, abdominal distention. TECHNIQUE: Computed tomography of the abdomen and pelvis was performed after the intravenous administration of iodinated contrast. One or more of the following individualized dose reduction techniques were utilized for this examination: 1. Automated exposure control. 2. Adjustment of the mA and/or kV according to patient size. 3. Use of iterative reconstruction technique. COMPARISON: 11/22/2017. FINDINGS: Lung windows through the visualized portions of the bases reveal coronary atherosclerotic calcifications. There is mild basilar atelectasis. Bone windows reveal no suspicious lesions. A calculus in the right distal ureter measures 4 mm. There is mild right hydronephrosis and hydroureter. The right kidney enhances less avidly than the left, consistent with a component of acute obstruction. Another 2 mm calculus is noted in the right renal lower pole. Small bilateral renal cysts appear benign and measure up to 1.3 cm on the left. The uterus is surgically absent. The appendix is not inflamed. Sigmoid diverticulosis is mild. There is no small bowel obstruction. The liver, gallbladder, pancreas, adrenal glands and spleen are unremarkable. There are no pathologically enlarged lymph nodes. Changes of gastric bypass procedure are noted. IMPRESSION: 1. 4 mm obstructing right distal ureteral calculus with mild right hydronephrosis. 2. 2 mm right lower pole renal calculus. Electronically signed by: Shikha Veronica MD (06/19/2020 11:19 AM) [id number]
[2020-06-19] MEDS ORDERED: KETOROLAC 15 MG/ML VIAL. IVP ONE (11:30)
[2020-06-19] MEDS ORDERED: IV NORMAL SALINE 1000ML BAG 1,000 ML IV ONE (11:45)
[2020-06-19 12:09] VITALS: BP 170/91
[2020-06-19] MEDS ORDERED: TAMS0.4C97 PO (12:13)
[2020-06-19] MEDS ORDERED: ONDA4TAB7 PO (12:13)
[2020-06-19] MEDS ORDERED: IBUP-1007 PO (12:14)
[2020-06-19] MEDS ORDERED: CEPH-264 PO (12:14)
[2020-06-19] MEDS ORDERED: HYDR-3164 PO (12:14)
== END 2020-06-19 12:42 | disposition home or self-care (01) ==
LOC: ER 07:59
DX: N13.2 Hydronephrosis with renal and ureteral calculous obstruction (principal); R10.31 Right lower quadrant pain; R14.0 Abdominal distension (gaseous); R11.0 Nausea; F41.9 Anxiety disorder, unspecified; M79.7 Fibromyalgia; K21.9 Gastro-esophageal reflux disease without esophagitis; E78.00 Pure hypercholesterolemia, unspecified; I10 Essential (primary) hypertension; I25.2 Old myocardial infarction; Z90.710 Acquired absence of both cervix and uterus; Z98.51 Tubal ligation status; Z98.890 Other specified postprocedural states; Z86.718 Personal history of other venous thrombosis and embolism; Z87.891 Personal history of nicotine dependence
CPT/HCPCS: 36415; 74177; 80053; 81001; 83690; 85025; 85610; 85730; 87086; 96361; 96372; 96374; 96375; 99285; J0500; J1885; J2270; J2405; J7030; Q9966; Q9967